=== PATIENT | female | born 1970 | race Caucasian/White ===

== ENCOUNTER 2019-07-30 10:11 | Emergency (ER) | payer OTHER, SELFPAY ==
[2019-07-30 10:26] VITALS: BP 121/87; PULSE 60; RESP 20; TEMP 36.6; O2SAT 98
--- NOTE | 2019-07-30 10:39 | ED.NAVMDI ---
HPI - Nausea/Vomiting/Diarrhea General Chief complaint: Nausea/Vomiting/Diarrhea Stated complaint: nausea and diarrhea Time Seen by Provider: 07/30/19 10:39 Source: patient and family Mode of arrival: ambulatory Limitations: no limitations History of Present Illness HPI Narrative: Brenda Macdonald is a 49 yo female with a PMH of depression, GERD, who comes to the doctor's office for complaints of nausea vomiting x2 days. She states she has had to call off for 2 days Related Data Home Medications Medication Instructions Recorded Confirmed bupropion HCl 300 mg PO QAM 04/04/19 07/30/19 citalopram 40 mg PO DAILY 04/04/19 07/30/19 ranitidine HCl [Acid Control 150 mg PO BID 04/04/19 07/30/19 (ranitidine)] Allergies Allergy/AdvReac Type Severity Reaction Status Date / Time No Known Allergies Allergy Verified 07/30/19 10:39 Review of Systems Review of Systems: Narrative: CONSTITUTIONAL: Denies fever, chills, sweats. EYES: Denies visual changes, redness, discharge. ENT: Denies rhinorrhea, congestion, sore throat, otalgia. CARDIOVASCULAR: Denies chest pain, palpitations, edema. RESPIRATORY: Denies dyspnea, wheezing, cough GASTROINTESTINAL: Denies abdominal pain, has nausea, vomiting, diarrhea. GENITOURINARY: Denies dysuria, hematuria, abnormal discharge SKIN: Denies rash or itching. NEUROLOGIC: Denies numbness, or focal weakness. PSYCHIATRIC: Denies anxiety or depression. PMFSH Past Medical History Medical History Anxiety and depression Carpal tunnel syndrome GERD (gastroesophageal reflux disease) Family History Family History Other Diabetes mellitus Social History Social History Smoking status: Never smoker Alcohol intake: never Comments At time of signature, I agree with nursing past medical, surgical, social and family history. There is no relevant family history pertinent to the presenting complaint. Exam Narrative: Exam Narrative: GENERAL: This is a well-nourished, well-developed patient, in mild distress. Patient is unkempt HEAD: normocephalic, atraumatic. EYES: PERRL. Sclera clear/white. Vision is grossly intact. EARS: External ears normal, auditory canals clear and without drainage, TMs normal without perforation. Hearing grossly intact. NOSE: External nose normal with no obvious nasal discharge, nares without redness, no rhinorrhea. THROAT: Mucous membranes moist, posterior pharynx clear. NECK: Neck supple, non-tender . CARDIOVASCULAR: Regular rate and rhythm without murmurs, gallops, or rubs. RESPIRATORY: Clear to auscultation. Breath sounds equal bilaterally. No wheezes, rales, or rhonchi. GASTROINTESTINAL: Abdomen soft, non-tender, nondistended. SKIN: warm, intact with no suspicious lesions or rash, good texture and turgor. NEURO: awake, alert, and oriented to person, place and time. There were no obvious focal neurologic abnormalities. Steady gait EXTREMITIES: Normal range of motion. No edema. BACK: Nontender without deformity or crepitance. Course Course Emergency Course: Patient started on Zofran and Imodium, instructions on brat diet Work excuse given Vital Signs Vital signs: Vital Signs Temperature 97.9 F 07/30/19 10:26 Pulse Rate 60 07/30/19 10:26 Respiratory Rate 20 07/30/19 10:26 Blood Pressure 121/87 07/30/19 10:26 Pulse Oximetry 98 07/30/19 10:26 Temperature 97.9 F 07/30/19 10:26 Pulse Rate 60 07/30/19 10:26 Respiratory Rate 20 07/30/19 10:26 Blood Pressure 121/87 07/30/19 10:26 Pulse Oximetry 98 07/30/19 10:26 MDM - Nausea/Vomiting/Diarrhea Differential Diagnosis Differential diagnosis: Likely traveler's diarrhea, gastroenteritis, dehydration and other Discharge Plan Discharge Clinical Impression: Dehydration, Gastroenteritis Patient Dispositio
== END 2019-07-30 10:55 | disposition home or self-care (01) ==
PROVIDERS: Emergency Provider Nurse Practitioner
DX: K52.9 Noninfective gastroenteritis and colitis, unspecified (principal); E86.0 Dehydration; F41.9 Anxiety disorder, unspecified; F32.9 Major depressive disorder, single episode, unspecified; K21.9 Gastro-esophageal reflux disease without esophagitis
CPT/HCPCS: 99213; G0463

== ENCOUNTER 2023-09-08 14:26 | Emergency (ER) | payer BC, SELFPAY ==
[2023-09-08 14:34] VITALS: BP 131/95; PULSE 109; RESP 20; TEMP 36.8; O2SAT 95
[2023-09-08 14:44] VITALS: BP 131/95; PULSE 109; RESP 20; TEMP 36.8; O2SAT 95
--- NOTE | 2023-09-08 14:52 | ED.URI ---
HPI - URI/Sore Throat General Chief Complaint: Unspecified Stated Complaint: dizzy/matting eyes/headache Time Seen by Provider: 09/08/23 14:44 Source: patient and RN notes reviewed Mode of arrival: ambulatory Limitations: no limitations History of Present Illness HPI Narrative: Patient presents today complaining of headache, dizziness, nasal congestion, rhinorrhea, postnasal drip, nausea vomiting, redness and clear drainage from the right eye. The nasal and eye symptoms started yesterday, with the remaining symptoms starting today. The dizziness worsens with [id number] head movements. The dizziness has also caused her to vomit twice today. She currently rates her headache 08/02 and has been taking Coricidin HBP and Excedrin with some mild relief. Denies fever, chest pain, shortness of breath, numbness or tingling in the extremities, weakness. Related Data Home Medications Medication Instructions Recorded Confirmed bupropion HCl 300 mg 24 hr tablet, 300 mg PO QAM 04/04/19 09/08/23 extended release albuterol sulfate 90 mcg/actuation inhalation 09/08/23 09/08/23 aerosol inhaler amlodipine 5 mg tablet 5 mg PO DAILY 09/08/23 09/08/23 hydroxyzine HCl 25 mg tablet See Rx Instructions .Route 09/08/23 09/08/23 .COMPLEX PRN Anxiety lamotrigine 25 mg tablet See Rx Instructions .Route .COMPLEX 09/08/23 09/08/23 omeprazole 20 mg capsule,delayed 20 mg PO BID 09/08/23 09/08/23 release sertraline 100 mg tablet 150 mg PO DAILY 09/08/23 09/08/23 Allergies Allergy/AdvReac Type Severity Reaction Status Date / Time No Known Allergies Allergy Verified 09/08/23 14:42 Review of Systems Review of Systems: CONSTITUTIONAL: Denies body aches, fever, chills, or sweats. EYES: + redness and clear drainage to the right eye. ENT: Denies sore throat, or otalgia.+ rhinorrhea, congestion, postnasal drip CARDIOVASCULAR: Denies chest pain, palpitations, or edema. RESPIRATORY: Denies cough or dyspnea. GASTROINTESTINAL: Denies abdominal pain, nausea, vomiting, or diarrhea. GENITOURINARY: Denies dysuria or hematuria. SKIN: Denies rash, itching, or wounds. MUSCULOSKELETAL: Denies back pain, joint pain, or myalgia. NEUROLOGIC: Denies numbness, tingling, or weakness.+ headache, dizziness PSYCH: Denies depression or anxiety. [facility] Past Medical History Medical History (Updated 09/08/23 @ 15:22 by Nani Hughes, [employer]GRAM [employer], ) Anxiety and depression Carpal tunnel syndrome GERD (gastroesophageal reflux disease) Surgical History Surgical History Hx of cholecystectomy Hx of tubal ligation Family History Family History Other Diabetes mellitus Social History Social History Smoking status: Never smoker Alcohol intake: never Comments At time of signature, I have reviewed and agree with nursing past medical, surgical, social and family history unless otherwise noted. Please see nursing chart for further information. There is no relevant family history pertinent to the presenting complaint Exam Narrative: GENERAL: Well-appearing, well-nourished, and in no acute distress. HEAD: Normocephalic, atraumatic. EYES: EOMI. PERRL. No nystagmus. No redness or drainage. Conjunctivae normal. ENT: Mucous membranes pink and moist. Nares clear. + rhinorrhea. TMs normal bilaterally with mild middle ear effusions. Throat normal. Uvula midline. NECK: Normal AROM. Supple. No lymphadenopathy. CHEST: No respiratory distress. Clear to auscultation. HEART: Regular rate and rhythm. No murmur appreciated. EXTREMITIES: Normal range of motion. No edema. SKIN: Warm, dry, no rash. Capillary refill normal. Normal skin turgor. NEURO: No focal deficits. Alert and oriented x3. Gait steady. PSYCH: Normal affect. No signs of depression or anxiety. Course Cours
[2023-09-08] MEDS: MECLIZINE HCL 25 MG TABLET 50 MG PO (14:56)
== END 2023-09-08 15:25 | disposition home or self-care (01) ==
PROVIDERS: Emergency Provider Nurse Practitioner; PCP Internal Medicine
DX: B34.9 Viral infection, unspecified (principal); K21.9 Gastro-esophageal reflux disease without esophagitis; F41.9 Anxiety disorder, unspecified; F32.A Depression, unspecified
CPT/HCPCS: 99213; A9270; G0463

== ENCOUNTER 2024-04-19 19:26 | Emergency (ER) | payer BC, SELFPAY ==
[2024-04-19 19:30] VITALS: BP 122/80; PULSE 102; RESP 20; TEMP 37; O2SAT 96
--- NOTE | 2024-04-19 19:30 | ED.URI ---
HPI - URI/Sore Throat General Chief Complaint: Upper Respiratory Infection Stated Complaint: Cough/Shortness of Breath/Congestion Time Seen by Provider: 04/19/24 19:38 Source: patient and RN notes reviewed Mode of arrival: ambulatory Limitations: no limitations History of Present Illness HPI Narrative: 53-year-old female presents with concern of for cough, shortness of breath, chest congestion. She denies fever. Reports body aches. Reports runny nose and stuffy nose. 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 MD elicited complaint: cough Related Data Home Medications Medication Instructions Recorded Confirmed albuterol sulfate 90 mcg/actuation 2 puff inhalation Q4-6H PRN 09/08/23 04/19/24 aerosol inhaler Shortness Of Breath Or Wheezing amlodipine 5 mg tablet 5 mg PO DAILY 09/08/23 04/19/24 hydroxyzine HCl 25 mg tablet 25 mg PO DAILY PRN Anxiety 09/08/23 04/19/24 lamotrigine 25 mg tablet 50 mg PO QHS 09/08/23 04/19/24 omeprazole 20 mg capsule,delayed 20 mg PO BID 09/08/23 04/19/24 release metformin 500 mg tablet 500 mg PO BID 03/31/24 04/19/24 naltrexone 50 mg tablet 50 mg PO DAILY 03/31/24 04/19/24 bupropion HCl 200 mg tablet,12 hr 200 mg PO BID 04/19/24 04/19/24 sustained-release escitalopram oxalate 10 mg tablet 10 mg PO DAILY 04/19/24 04/19/24 Allergies Allergy/AdvReac Type Severity Reaction Status Date / Time No Known Allergies Allergy Verified 04/19/24 19:36 Review of Systems Review of Systems: CONSTITUTIONAL: Denies malaise, chills, sweats, or fever. EYES: Denies visual changes, redness, or discharge. ENT: Reports rhinorrhea, congestion. Denies sinus pain, otalgia and sore throat. CARDIOVASCULAR: Denies chest pain, palpitations, or edema. RESPIRATORY: Reports cough and chest congestion. Denies dyspnea. GASTROINTESTINAL: Denies abdominal pain, nausea, vomiting, diarrhea SKIN: Denies rash or itching. MUSCULOSKELETAL: Reports myalgia. NEUROLOGIC: Denies headache. All systems reviewed & are unremarkable except as noted in HPI and below PMFSH Past Medical History Medical History (Updated 04/19/24 @ 19:58 by Kirti Jose NP) Anxiety and depression Carpal tunnel syndrome GERD (gastroesophageal reflux disease) Surgical History Surgical History Hx of cholecystectomy Hx of tubal ligation Family History Family History Other Diabetes mellitus Social History Social History Smoking status: Never smoker Alcohol intake: never Comments At time of signature, agree with nursing past medical, surgical, social and family history. There is no relevant family history pertinent to the presenting complaint Exam Narrative: GENERAL: Well-appearing, well-nourished, and in no acute distress. HEAD: Normocephalic EYES: PERRLA, conjunctivae clear ENT: Nares clear, turbinates edematous and erythematous, clear discharge. Mucous membranes moist. TM pearly nelson with dull light reflex bilaterally; no tragal tenderness. Oropharynx not erythematous without lesions. Tonsils not enlarged and without exudate, no drooling, no hoarseness, no trismus, uvula midline. NECK: Supple. No lymphadenopathy CHEST: Clear to auscultation, breath sounds equal. No wheezing, rhonchi, rales, or stridor. No respiratory distress, speaks in full sentences. HEART: Regular rate and rhythm. No murmur heard. SKIN: Warm, dry, no rash. NEURO: Alert and oriented x3. PSYCH: Normal mood and affect Course Course Emergency Course: Patient is aware of diagnosis, understands and agrees to treatment plan. Anticipatory guidance given. Patient agrees to follow-up as directed and is aware of reasons to seek care at the emergency department. Portions of this record may have been created with voice recognition software Level of Care: Express Care Visit Vital Signs Vital signs: Reviewed. MDM - URI/Sore Throat MDM Narrative Medical decision making narrative: Differential diagnosis considered: Duran virus, strep pharyngitis, allergic rhinitis, upper respiratory tract infection, sinusitis, rhinosinusitis, nasopharyngitis. viral pharyngitis, otitis media, otitis externa, pneumonia, bronchitis, viral cough syndrome, viral syndrome, and influenza. Exam findings show no acute concerns or changes; patient is non-toxic appearing and is in no distress. Patient is appropriate for outpatient treatment and follow-up. Lab Data Attestation: I reviewed the patient's lab results. Critical Care Time Critical Care Time Critical Care Time: No Discharge Plan Discharge Clinical Impression: Upper respiratory infection Patient Disposition: Home, Self-Care Condition: Stable Instructions: Upper Respiratory Infection (ED) Additional Instructions: Your flu and COVID tests are negative Viral illness may last between 7-21 days; antibiotics do not cure viral illness and are NOT recommended at this time. Recommend antihistamine such as Benadryl at night time and Zyrtec or Mariam during the day Use inhaler as needed for cough, wheezing, shortness of breath or chest tightness. Also, recommend symptomatic treatment includes: rest, fluids, and increase humidity of the air at home. Recommend Acetaminophen as directed on the bottle to reduce fever, pain, headache. Avoid smoking/second-hand smoke. Please schedule a follow-up visit with your personal physician for further evaluation and treatment within 3-5days. Including recheck and discussion of your blood pressure. If your symptoms persist, change or worsen significantly before you can contact your personal physician then please, without delay, go to the emergency department for further evaluation. Prescriptions: New prednisone 20 mg tablet 40 mg PO DAILY 5 Days Qty: 10 0RF albuterol sulfate 90 mcg/actuation HFA aerosol inhaler 2 puff INHALATION QID PRN (Reason: shortness of breath or wheezing) Qty: 8.5 0RF No Action metformin 500 mg tablet 500 mg PO BID naltrexone 50 mg tablet 50 mg PO DAILY escitalopram oxalate 10 mg tablet 10 mg PO DAILY bupropion HCl 200 mg tablet sustained-release 12 hr 200 mg PO BID lamotrigine 25 mg tablet 50 mg PO QHS omeprazole 20 mg capsule,delayed release(DR/EC) 20 mg PO BID hydroxyzine HCl 25 mg tablet 25 mg PO DAILY PRN (Reason: Anxiety) amlodipine 5 mg tablet 5 mg PO DAILY albuterol sulfate 90 mcg/actuation HFA aerosol inhaler 2 puff INHALATION Q4-6H PRN (Reason: Shortness Of Breath Or Wheezing) Follow-up/Referrals: Mar Ptael MD [Primary Care Provider] - Stand Alone Forms: Work/School Release IP Time of Disposition: 19:57
[2024-04-19 19:47] VITALS: BP 122/80; PULSE 102; RESP 20; TEMP 37; O2SAT 96
[2024-04-19 20:11] LABS: EDCOVIDSCREEN Negative (Negative); EDINFLUASCREEN Negative (Negative); EDINFLUBSCREEN Negative (Negative)
== END 2024-04-19 20:05 | disposition home or self-care (01) ==
PROVIDERS: Emergency Provider Nurse Practitioner; PCP Internal Medicine
DX: J06.9 Acute upper respiratory infection, unspecified (principal); Z20.822 Contact with and (suspected) exposure to COVID-19; K21.9 Gastro-esophageal reflux disease without esophagitis; F41.9 Anxiety disorder, unspecified; F32.A Depression, unspecified
CPT/HCPCS: 87426; 87804; 99213; G0463

== ENCOUNTER 2024-08-06 09:12 | Emergency (ER) | payer BC, SELFPAY ==
--- NOTE | 2024-08-06 09:14 | ED_ITS ---
HPI - URI/Sore Throat General Chief Complaint: Upper Respiratory Infection Stated Complaint: nausea/throat Time Seen by Provider: 08/06/24 09:33 Source: patient and RN notes reviewed Mode of arrival: ambulatory Limitations: no limitations History of Present Illness HPI Narrative: 54-year-old female presents concern for cough, sore throat for 8 days. Reports yesterday she had several episodes of vomiting. She denies abdominal pain. Denies taking [id number] medications for her symptoms. She denies fever, body aches, chills, sweats MD elicited complaint: cough and sore throat Related Data Home Medications ?Medication ?Instructions ?Recorded ?Confirmed ?Last Taken ?Type amlodipine 5 mg tablet 5 mg PO DAILY 09/08/23 04/19/24 Unknown History hydroxyzine HCl 25 mg tablet 25 mg PO DAILY PRN Anxiety 09/08/23 04/19/24 Unknown History lamotrigine 25 mg tablet 50 mg PO QHS 09/08/23 04/19/24 Unknown History omeprazole 20 mg capsule,delayed 20 mg PO BID 09/08/23 04/19/24 Unknown History release metformin 500 mg tablet 500 mg PO BID 03/31/24 04/19/24 Unknown History naltrexone 50 mg tablet 50 mg PO DAILY 03/31/24 04/19/24 Unknown History bupropion HCl 200 mg tablet,12 hr 200 mg PO BID 04/19/24 04/19/24 Unknown History sustained-release escitalopram oxalate 10 mg tablet 10 mg PO DAILY 04/19/24 04/19/24 Unknown History Allergies Allergy/AdvReac Type Severity Reaction Status Date / Time No Known Allergies Allergy Verified 08/06/24 09:36 Review of Systems Review of Systems: CONSTITUTIONAL: Reports malaise. Denies chills, sweats, or fever. EYES: Denies visual changes, redness, or discharge. ENT: Reports rhinorrhea, congestion, and sore throat. CARDIOVASCULAR: Denies chest pain, palpitations, or edema. RESPIRATORY: Reports cough. Denies dyspnea. GASTROINTESTINAL: Denies abdominal pain, diarrhea. Reports nausea with vomiting yesterday. SKIN: Denies rash or itching. MUSCULOSKELETAL: Denies myalgia. NEUROLOGIC: Denies headache. All systems reviewed & are unremarkable except as noted in HPI and below PMFSH Past Medical History Medical History (Updated 08/06/24 @ 09:41 by Kirti Jose NP) Carpal tunnel syndrome GERD (gastroesophageal reflux disease) Anxiety and depression Surgical History Surgical History Hx of tubal ligation Hx of cholecystectomy Family History Family History Other Diabetes mellitus Social History Social History Smoking status: Never smoker Alcohol intake: never Comments At time of signature, agree with nursing past medical, surgical, social and family history. There is no relevant family history pertinent to the presenting complaint Exam Narrative: GENERAL: Nontoxic-appearing, well-nourished, and in no acute distress. HEAD: Normocephalic EYES: PERRLA, conjunctivae clear ENT: Nares clear. Mucous membranes moist. TM pearly nelson with dull light reflex bilaterally; no tragal tenderness. Oropharynx not erythematous without lesions. Tonsils not enlarged and without exudate, no drooling, no hoarseness, no trismus, uvula midline. NECK: Supple. No lymphadenopathy CHEST: Clear to auscultation, breath sounds equal. No wheezing, rhonchi, rales, or stridor. No respiratory distress, speaks in full sentences. Cough noted HEART: Regular rate and rhythm. No murmur heard. SKIN: Warm, dry, no rash. NEURO: Alert and oriented x3. PSYCH: Normal mood and affect Course Course Emergency Course: Patient is aware of diagnosis, understands and agrees to treatment plan. Anticipatory guidance given. Patient agrees to follow-up as directed and is aware of reasons to seek care at the emergency department. Portions of this record may have been created with voice recognition software Level of Care: Express Care Visit Vital Signs Vital signs: Reviewed. MDM - URI/Sore Throat MDM Narrative Medical decision making narrative: Differential diagnosis considered: Duran virus, strep pharyngitis, allergic rhinitis, upper respiratory tract infection, sinusitis, rhinosinusitis, nasopharyngitis. viral pharyngitis, otitis media, otitis externa, pneumonia, bronchitis, viral cough syndrome, viral syndrome, and influenza. Exam findings show no acute concerns or changes; patient is non-toxic appearing and is in no distress. Patient is appropriate for outpatient treatment and follow-up. Lab Data Attestation: I reviewed the patient's lab results. Critical Care Time Critical Care Time Critical Care Time: No Discharge Plan Discharge Clinical Impression: Upper respiratory infection with cough and congestion Patient Disposition: Home, Self-Care Condition: Stable Instructions: Antibiotic Form, Acute Cough (ED) Additional Instructions: 1) Please follow-up with your primary care doctor in the next 1-2 days. 2) If you have any worsening of symptoms or any other urgent concerns please go to the ER. 3) Please take medications as prescribed and continue taking your home medications as usual. 4) Please read and follow information included in discharge instructions. Patient Language: Greenlandic Prescriptions: New dextromethorphan-guaifenesin [Mucinex DM] 60-1,200 mg tablet extended release 12 hr 1 tablet PO Q12H Qty: 12 0RF penicillin V potassium 500 mg tablet 500 mg PO Q12H 10 Days Qty: 20 0RF methylprednisolone [Medrol (Fady)] 4 mg tablets,dose pack See Rx Instructions .ROUTE .COMPLEX Qty: 21 0RF Rx Instructions: orally per package directions No Action metformin 500 mg tablet 500 mg PO BID naltrexone 50 mg tablet 50 mg PO DAILY escitalopram oxalate 10 mg tablet 10 mg PO DAILY bupropion HCl 200 mg tablet sustained-release 12 hr 200 mg PO BID lamotrigine 25 mg tablet 50 mg PO QHS omeprazole 20 mg capsule,delayed release(DR/EC) 20 mg PO BID hydroxyzine HCl 25 mg tablet 25 mg PO DAILY PRN (Reason: Anxiety) amlodipine 5 mg tablet 5 mg PO DAILY Follow-up/Referrals: UNKNOWN,DOCTOR [Non-Staff] - Stand Alone Forms: Work/School Release IP Time of Disposition: 09:43
[2024-08-06 09:16] VITALS: BP 107/78; PULSE 98; RESP 16; TEMP 36.6; O2SAT 97
--- OUTSIDE RECORDS SUMMARY | 2024-08-06 09:39 | XMS_ITS | Referral Summary ---
Author Organization [facility] Address [address] [place] [address] Care Team Providers Care Glove Parts Inspector Name Role Phone Quoc Hendrix PT Unavailable Unavailable Bailey Piedra CHRISTMAS BELL RINGER Unavailable Unavailab Gilbert Duarte MD Primary Care Provi adriana Encounters Date Type Department Care Team Description 08/04/2024 Results Follow-Up [facility] Primary Care at [address] [phone] Gilbert Chilel MD 08/03/2024 9:45 AM CDT Office Visit [facility] Primary Care at [address] [phone] Gilbert Chilel MD Type 2 diabetes mellitus without complication, without long-term current use of insulin (HCC) (Primary Dx); Essential hypertension; Class 2 severe obesity with serious comorbidity and body mass index (BMI) of 36.0 to 36.9 in adult, unspecified obesity type (HCC) 08/02/2024 Results Follow-Up [facility] Primary Care at [address] [phone] Gilbert Chilel MD 08/02/2024 9:21 AM CDT - 08/02/2024 11:59 PM CDT Hospital Encounter [address] [address] Hyperglycemia Discharge Disposition: Discharge to home or self care 08/02/2024 9:30 AM CDT Lab [facility] at [address] [phone] Blood glucose elevated (Primary Dx) 07/29/2024 10:45 AM LABOR SPECIALIST Office Visit [facility] Primary Care at [address] [phone] Gilbert Chilel MD Acute gastroenteritis (Primary Dx); Nausea and vomiting, unspecified vomiting type 07/21/2024 Telephone [facility] Primary Care at [address] [phone] Gilbert Chilel MD Medical Question/Miscellaneous 07/01/2024 3:00 PM LABOR SPECIALIST Office Visit [facility] Primary Care at [address] [phone] Gilbert Chilel MD Acute gastroenteritis (Primary Dx); Mild dehydration; Vomiting, unspecified vomiting type, unspecified whether nausea present 06/22/2024 11:30 AM LABOR SPECIALIST Office Visit [facility] Primary Care at [address] [phone] Gilbert Chilel MD Acute intractable headache, unspecified headache type (Primary Dx); Encounter for screening mammogram for malignant neoplasm of breast 05/31/2024 9:52 AM LABOR SPECIALIST - 05/31/2024 11:59 PM LABOR SPECIALIST Hospital Encounter [facility] Nutrition and Diabetic Education 1 [facility] Room [address] [place], [place] [id number] Hernandez, Kay Flores RD Type 2 diabetes mellitus with hyperglycemia, unspecified whether terminal press operator insulin use (HCC); Obesity; Pure hypercholesterolemia Discharge Disposition: Discharge to home or self care from Last 3 Months Allergies No known active allergies Medications omeprazole (PriLOSEC) 20 mg capsule Take 1 capsule (20 mg total) by mouth daily 08/23/19 18 Active cyclobenzaprine (FLEXERIL) 5 mg tablet TK 1 T PO TID PRN 0 04/28/20 18 Active Contour Next Test Strips strip daily 03/05/20 24 Active escitalopram (LEXAPRO) 10 mg tablet TAKE 1 TABLET BY MOUTH EVERY DAY IN THE EVENING FOR DEPRESSION OR ANXIETY 04/07/20 24 Active hydrOXYzine (ATARAX) 25 mg tablet Take 1 tablet (25 mg total) by mouth 4 (four) times a day as needed Active ibuprofen (ADVIL,MOTRIN) 600 mg tablet Take 1 tablet (600 mg total) by mouth every 8 (eight) hours as needed for pain 12/06/19 22 Active lamoTRIgine (LaMICtal) 25 mg tablet TAKE 2 TABLETS BY MOUTH EVERY DAY IN THE EVENING FOR MOOD SYMPTOMS 04/07/20 24 Active metFORMIN (GLUCOPHAGE) 500 mg tablet Take 1 tablet (500 mg total) by mouth daily with breakfast 04/09/20 24 Active naltrexone (DEPADE) 50 mg tablet Take 1 tablet (50 mg total) by mouth daily 02/23/20 24 Active buPROPion SR (WELLBUTRIN SR) 200 mg 12 hr tablet TAKE 1 TABLET BY MOUTH TWICE DAILY. START THIS WITH NALTREXONE 50 MG DAILY 04/12/20 24 Active Microlet Lancet misc daily 05/25/20 24 Active multivit with min-folic acid 0.4 mg tablet Take 1 tablet by mouth daily Active aspirin 81 mg enteric coated tablet Take 1 tablet (81 mg total) by mouth daily Active vilazodone (VIIBRYD) 20 mg tablet 07/28/19 25 Active ondansetron ODT (ZOFRAN-ODT) 4 mg disintegrating tabletIndications:N ausea and vomiting, unspecified vomiting type Take 1 tablet (4 mg total) by mouth every 8 (eight) hours as needed for nausea or vomiting for up to 10 days 30 tablet 07/30/19 25 025 Active losartan (COZAAR) 25 mg tabletIndications:E ssential hypertension Take 1 tablet (25 mg total) by mouth daily 90 tablet 1 08/04/19 25 025 Active amLODIPine (NORVASC) 5 mg tablet Take 1 tablet (5 mg total) by mouth daily 04/23/20 24 025 Discontinu ed(Alterna te therapy) ondansetron ODT (ZOFRAN-ODT) 4 mg disintegrating tabletIndications:A cute gastroenteritis Take 1 tablet (4 mg total) by mouth every 6 (six) hours as needed for nausea or vomiting for up to 10 days 30 tablet 1 07/01/19 25 025 Active Problems Problem Noted Date Diagnosed Date Type 2 diabetes mellitus wit hout complication, without long-term current use of insulin 08/03/2024 Class 2 severe obesity with serious comorbidity and body mass index (BMI) of 36.0 to 36.9 in adult 08/03/2024 Nausea and vomiting 07/29/2024 Acute gastroenteritis 07/01/2024 Mild dehydration 07/01/2024 Hyperglycemia 04/29/2024 Essential hypertension 04/29/2024 Personal history of colonic polyps 02/05/2024 Encounter for screening colonoscopy 03/27/2020 Overview (03/27/2020): Added automatically from request for surgery [id number] Arthritis of right acromioclavicular joint 12/10 Overview (12/10/2017): Added automatically from request for surgery [id number] Bicipital tendinitis of right shoulder 8 Overview (12/10/2017): Added automatically from request for surgery [id number] Impingement syndrome of right shoulder 8 Overview (12/10/2017): Added automatically from request for surgery [id number] Asthma 10/09/2013 Overview (08/28/2016): Asthma Depression 10/09/2013 Overview (08/29/2016): Depression Bipolar affective disorder 10/09/2013 Overview (08/29/2016): Bipolar disorder Resolved Problems Problem Noted Date Diagnosed Date Resolved Date Acute intractable headache 06/22/2024 0 07/29/2024 Class 2 obesity without seri ous comorbidity with body mass index (BMI) of 37.0 to 37.9 in adult 04/29/2024 08/03/2024 Immunizations Immunization Administration Dates Next Due Influenza, Quadrivalent, Spl it, Intramuscular 02/18/2018,04/04/2017,04/17/2016,03/15 Influenza, Trivalent, High D ose, Split, Preservative Free, Intramuscular 03/18/2013 Influenza, Unspecified 03/10/2024,2022(Deferred: Patient Refused),03/04/2023(Deferred: Patient Refused) Pfizer SARS-CoV-2 Monovalent Vaccination (12+ Yrs) PURPLE 05/23/2021,05/22/2021,08/25/2020,08/24,08/06/2020,07/23/2020 Tdap 01/19/2016,01/18/2016 Social History Tobacco Use Types Packs/Day Years Used Date Smoking Tobacco: Never Smokeless Tobacco: Never Tobacco Cessation:Counseling Given: Not Answered Alcohol Use Standard Drinks/Week Comments No 0 (1 standard drink = 0.6 oz pur e alcohol) AUDIT-C Answer Date Recorded Q1: How often do you have a drink containing alc ohol? Never 02/28/2021 Average Number of Drinks Not on file 021 Frequency of Binge Drinking Not on file 10/2020 PHQ-2 Answer Date Recorded PHQ-2 Total Score (If total score is 3 or more points, staff should administer the PHQ-9) 2 04/29/2024 Comments No Sex and Gender Information Value Date Recorded Sex Assigned at Not on file Legal Sex Female 12:49 AM LABOR SPECIALIST Gender Identity Not on file Sexual Orientation Not on file Last Filed Vital Signs Vital Sign Reading Time Taken Comments Blood Pressure 106/70 08/03/2024 9:23 AM CDT Pulse 70 08/03/2024 9:23 AM CDT Temperature 36.3 C (97.3 F) 08/03/2024 9:23 AM CDT Respiratory Rate 22 02/28/2021 12:5 9 PM CDT Oxygen Saturation 96% 08/03/2024 9:23 AM CDT Inhaled Oxygen Concentration - - Weight 92.4 kg (203 lb 12.8 oz) 08/03/2024 9:23 AM CDT Height 160 cm (5' 2.99 ) 08/03/2024 9:23 AM CDT Body Mass Index 36.11 08/03/2024 9:23 AM CDT Plan of Treatment Upcoming Encounters Date Type Department Care Team (Late st Contact Info) Description 03/14/2025 10:00 AM CDT Hospital Encounter [facility] [address] [place] [address] Enid Toribio MD [address] [facility] [address] [place] [address] 03/14/2025 10:00 AM CDT - 03/14/2025 10:30 AM CDT Surgery [facility] [address] [place] [address] Enid Toribio MD [address] [facility] [address] [place] [address] COLONOSCOPY Scheduled Procedures Name Priority Associated Diagnoses Date/Ti me COLONOSCOPY Personal history of colonic polyps Encounter for screening colonoscopy 03/14/2025 10:00 AM CDT Procedures Procedure Name Priority Date/Time Associated Diagnosis Comments RETINAVUE SCANNER - OU - BOTH EYES Routine 08/03/2024 9:30 AM CDT Type 2 diabetes mellitus without complication, without long-term current use of insulin (HCC) HEMOGLOBIN A1C Routine 08/02/2024 9:21 AM CDT Hyperglycemia POC INFLUENZA A/B, COVID-19 ANTIGEN Routine 07/01/2024 2:45 PM LABOR SPECIALIST Vomiting, unspecified vomiting type, unspecified whether nausea present EGFR Routine 05/03/2024 10:30 AM LABOR SPECIALIST Essential hypertension LIPID PANEL Routine 05/03/2024 10:30 AM LABOR SPECIALIST Essential hypertension ALBUMIN CREATININE RATIO, URINE Routine 05/03/2024 10:30 AM LABOR SPECIALIST Hyperglycemia COLONOSCOPY 02/28/2021 10:35 AM CDT SCREENING MAMMOGRAM BILATERAL [facility] Schedule Routine, Read Routine (OP Routine) 08/28/2020 3:24 PM CDT Encounter for screening mammogram for malignant neoplasm of breast from Last 3 Months or Most Recently Relevant to Health Maintenance Results * RetinaVue Scanner - OU - Both Eyes (08/03/2024 9:30 AM CDT) Anatomical Region Laterality Modality Head Fundus Photograp hy Retina 08/03/2024 9:30 AM CDT Gilbert Chilel MD OPHTH PHOTOGRAPHY F inal Result * (ABNORMAL) Hemoglobin A1c (08/02/2024 9:21 AM CDT) Hgb A1C 6.3(H) 4.0 - 5.6 % Estimated Average Glucose 134 mg/dL [facility] Comment: The ADA recommends reporting an estimated Average Glucose (eAG) with all Hemoglobin A1c results using the equation derived from a study of 507 normal and diabetic adults. Minority populations were underrepresented and children were not included. (Diabetes Care 31:7815-5292, 2008). The eAG is not equivalent to a fasting glucose. Blood 08/02/2024 9:21 AM CDT 08/02/2024 2:38 PM CDT Gilbert Chilel MD LAB BLOOD ORDERABLE S Final Result Performing Organization Address City/State/ZIP Co pa Phone Number CRISTIAN [phone] Department [place] [address] * POC Influenza A/B, COVID-19 antigen (07/01/2024 2:45 PM LABOR SPECIALIST) Influenza A Ag, POC Negative Negative PCP [facility] Influenza B Ag, POC Negative Negative PCP [facility] COVID-19 Ag POC Presumptive Negative Presumptive Negative, Invalid PCP [facility] Nasal 07/01/2024 2:45 PM LABOR SPECIALIST Gilbert Chilel MD POINT OF CARE TEST ORDERABLES Final Result [facility] [address] [place] [phone], [facility] * eGFR (05/03/2024 10:30 AM LABOR SPECIALIST) eGFR 75 >=60 mL/min/1. 73 m2 Comment: Interpretive Data Reference Interval Normal >/= 90 mL/min/1.73m2 Mildly decreased* 60 - 89 mL/min/1.73m2 Mildly to moderately decreased 45 - 59 mL/min/1.73m2 Moderately to severely decreased 30 - 44 mL/min/1.73m2 Severely decreased 15 - 29 mL/min/1.73m2 Kidney Failure < 15 mL/min/1.73m2 *Relative to young adult level Estimated glomerular filtration rate is determined by the 2020 CKD-EPI equation recommended by the National Kidney Foundation (A Unifying Approach to GFR Estimation: Recommendations of the NKF-ASK Task Force on Reassessing the Inclusion of Race in Diagnosing Kidney Disease, JASN 2020). The CKD-EPI equation should not be used for patients with unstable renal function and has not been validated in children and those over 70. Current interpretive data was last reviewed 2021. Blood 05/03/2024 10:3 0 AM LABOR SPECIALIST 05/03/2024 9:15 PM LABOR SPECIALIST us Gilbert Chilel MD LAB BLOOD ORDERABLE S Final Result Performing Organization Address City/[facility]/ZIP Co de Phone Number [facility] [phone] [address] Department [place] [address] * Albumin Creatinine Ratio, Urine (05/03/2024 10:30 AM LABOR SPECIALIST) Albumin Ur 27.2 mg/L Comment: Interpretive Data No reference range established. Current interpretive data was last revised 2018. Creatinine Ur 233.5 mg/dL [facility] Comment: Interpretive Data No reference range established. Current interpretive data was last revised 2018. Albumin Creatinine Ratio, Ur 12 1 - 29 mg/g [facility] Urine 05/03/2024 10:3 0 AM LABOR SPECIALIST 05/03/2024 9:13 PM LABOR SPECIALIST us Gilbert Chilel MD LAB URINE ORDERABLE S Final Result [facility] [address] Department [place] [address] * (ABNORMAL) Lipid panel (05/03/2024 10:30 AM LABOR SPECIALIST) Cholesterol 198 30 - 199 mg/dL Comment: Interpretive Data Ages < or = 19 years Acceptable: <170 mg/dL Borderline high: 170-199 mg/dL High: >or= 200 mg/dL Ages > or = 20 years Desirable: <200 mg/dL Borderline high: 200-239 mg/dL High: >or= 240 mg/dL Literature References: 1. Expert Panel on Integrated Guidelines for Cardiovascular Health and Risk Reduction in Children and Adolescents. Pediatrics 2011;128:S213 2. NCEP Expert Panel. Circulation 2004;110:227 Current Interpretive Data was last revised on 2018. Triglycerides 128 <=149 mg/dL [facility] Comment: Interpretive Data Ages < or = 9 years Acceptable: <75 mg/dL Borderline high: 75-99 mg/dL High: >or= 100 mg/dL Ages 10 to 20 years Acceptable: <90 mg/dL Borderline high: 90-129 mg/dL High: >or= 130 mg/dL Ages > or = 20 years Desirable: <150 mg/dL Borderline high: 150-199 mg/dL High: 200-499 mg/dL Very high: >or= 499 mg/dL Literature References: 1. Expert Panel on Integrated Guidelines for Cardiovascular Health and Risk Reduction in Children and Adolescents. Pediatrics 2011;128:S213 2. NCEP Expert Panel. Circulation 2004;110:227 Current Interpretive Data was last revised on 2018. HDL 39(L) >=40 mg/dL [facility] WORLEY Comment: Interpretive Data Ages < or = 19 years Acceptable: >45 mg/dL Borderline low: 40-45 mg/dL Low: <40 mg/dL Ages > or = 20 years Desirable: >or= 60 mg/dL Low: <40 mg/dL Literature References: 1. Expert Panel on Integrated Guidelines for Cardiovascular Health and Risk Reduction in Children and Adolescents. Pediatrics 2011;128:S213 2. NCEP Expert Panel. Circulation 2004;110:227 Current Interpretive Data was last revised on 2018. LDL, calculated 136(H) <=129 mg/dL C[facility]STIAN WORLEY Comment: Interpretive Data Ages < or = 19 years Acceptable: <110 mg/dL Borderline high: 110-129 mg/dL High: >or= 130 mg/dL Ages > or = 20 years Optimal: <100 mg/dL Near optimal: 100-129 mg/dL Borderline high: 130-159 mg/dL High: >160 mg/dL Calculated using the Timbo LDL-C estimating equation. This equation was implemented on 2024. Prior to this date LDL-C was estimated using the Friedewald equation. Literature References: 1. Expert Panel on Integrated Guidelines for Cardiovascular Health and Risk Reduction in Children and Adolescents. Pediatrics 2011;128:S213 2. NCEP Expert Panel. Circulation 2004;110:227 3. Timbo Corcoran et al. ARMANI Cardiol. 2019September 23;5(5):540-548. doi: 10.1001/jamacardio.2020.0013 Current Interpretive Data was last revised on 2024. Non-HDL Cholesterol 159 mg/dL [facility] WORLEY Comment: Interpretive Data Ages < or = 19 years Acceptable: <120 mg/dL Borderline high: 120-144 mg/dL High: >145 mg/dL Ages > or = 20 years When triglycerides are >200 mg/dL, Non-HDL cholesterol is a secondary target of therapy with treatment goals that are 30 mg/dL greater than the LDL cholesterol target. Literature References: 1. Expert Panel on Integrated Guidelines for Cardiovascular Health and Risk Reduction in Children and Adolescents. Pediatrics 2011;128:S213 2. NCEP Expert Panel. Circulation 2004;110:227 Current Interpretive Data was last revised on 2018. Chol/HDL ratio 5 [facility] WORLEY Blood 05/03/2024 10:3 0 AM LABOR SPECIALIST 05/03/2024 9:13 PM LABOR SPECIALIST us Gilbert Chilel MD LAB BLOOD ORDERABLE S Final Result [facility] [address] Department [place] [address] * COLONOSCOPY (02/28/2021 10:35 AM CDT) Anatomical Region Laterality Modality Other Narrative Procedure Note Enid Toribio MD - 02/28/2021 10:35 AM CDT [facility] Patient Name: Brenda Macdonald Procedure Date: 02/28/2021 10:35 AM Date of : 1970 Admit Type: Outpatient Age: 50 Gender: Female Attending MD: Enid Toribio M.D. Room: [facility] ENDOSCOPY ROOM 1 Note Status: Finalized Patient Profile: This is a 50 year old female. No family history of colon cancer. Screening. Procedure: Colonoscopy Indications: Screening for colorectal malignant neoplasm, Thisis the patient's first colonoscopy Referring MD: Mar Patel M.D. Providers: Enid Toribio M.D. Impression: - One 9 mm polyp in the descending colon, removedwith a cold snare. Resected and retrieved. - Diverticulosis in the sigmoid colon. - Large external hemorrhoids and small internal hemorrhoids Recommendation: - Await pathology results. - Repeat colonoscopy in 3 years for screeningpurposes. - Continue present medications. Medicines: Monitored Anesthesia Care Complications: No immediate complications. Estimated Blood Loss: Estimated blood loss: none. Procedure: Pre-Anesthesia Assessment: - Prior to the procedure, a History and Physicalwas performed, and patient medications and allergieswere reviewed. The patient's tolerance of previous anesthesia was also reviewed. The risks andbenefits of the procedure and the sedation options and risks were discussed with the patient. All questions were answered, and informed consent was obtained. Prior Anticoagulants: The patient has taken no previous anticoagulant or antiplatelet agents. ASA Grade Assessment: III - A patient with severe systemic disease. After reviewing the risks and benefits,the patient was deemed in satisfactory condition to undergo the procedure. The benefits, risks and alternatives of theprocedure and sedation were discussed and informed consentwas obtained. All questions were answered. Please referto the signed informed consent document in the medical record. The bowel preparation used was Miralax via split dose instruction. The bowel preparation usedwas bisacodyl tablets via split dose instruction. The scope was passed under direct vision. The Pediatric Colonoscope [id number] was introducedthrough the anus and advanced to the the cecum, identifiedby appendiceal orifice and ileocecal valve. Thequality of the bowel preparation was fair. Bowel prep was administered using a split dose. Findings: Large external hemorrhoids were found on perianal exam. The cecum appeared normal. The ascending colon appeared normal. The transverse colon appeared normal. Considering the quality of the colon preparation small polyps can easily be missed A 9 mm polyp was found in the descending colon. The polyp wassessile. The polyp was removed with a cold snare. Resection and retrieval were complete. Multiple small-mouthed diverticula were found in the sigmoid colon. Internal hemorrhoids were found during retroflexion. The hemorrhoids were small. Electronically signed by Enid Toribio M.D. Enid Toribio M.D. 02/28/2021 12:28:15 PM Number of Addenda: 0 Note Initiated On: 02/28/2021 10:35 AM Procedure Code(s): --- Professional --- 47860, Colonoscopy, flexible; with removal of tumor(s), polyp(s), or other lesion(s) by snare technique Diagnosis Code(s): --- Professional --- Z12.11, Encounter for screening for malignant neoplasm of colon K64.8, Other hemorrhoids K63.5, Polyp of colon K57.30, Diverticulosis of large intestine without perforation orabscess without bleeding CPT copyright 2019 [employer]. All rights reserved. The codes documented in this report are preliminary and upon medical record coder reviewmay be revised to meet current compliance requirements. Recognized by the [employer] for promoting quality in endoscopy us Enid Toribio MD ENDOSCOPY PROCEDURES Final Result * (ABNORMAL) Screening Mammogram Bilateral [facility] [place] (08/28/2020 3:24 PM CDT) Anatomical Region Laterality Modality Breast Bilateral Mammography 08/29/2020 9:15 AM CDT Impressions 08/29/2020 9:25 AM CDT 1. Indeterminate focal asymmetry in the lateral right breast, middle to posterior depth. Further evaluation with diagnostic right mammography and possible diagnostic right breast ultrasound is recommended. 2. No mammographic evidence of malignancy in the left breast. Routine screening mammography left breast is recommended in 1 year. BI-RADS: 0 - Additional imaging evaluation is necessary. Electronically signed by: Moi Franklin M.D. Narrative 08/29/2020 9:25 AM CDT EXAMINATION: SCREENING MAMMOGRAM BILATERAL [facility] [place] ORDERING HEALTHCARE PROVIDER: ELSA STEELE HISTORY: Routine screening mammography. COMPARISON: 07/10/2018, 06/12/2016, 03/13/2016, 10/27/2014. TECHNIQUE: CC and MLO views of the bilateral breasts were obtained with digital technique using breast tomosynthesis with C view. Computer aided detection was utilized. FINDINGS: DENSITY: The tissue of the bilateral breasts is heterogeneously dense, which may obscure small masses. BREASTS: There is a focal asymmetry in the lateral right breast at the approximate 8-9 o'clock position, middle to posterior depth. There are no other suspicious findings in either breast. Elsa Steele SOFTWARE DEVELOPMENT TEST ENGINEER IMG MAMMO PROCEDURES Final Re sult from Last 3 Months or Most Recently Relevant to Health Maintenance Insurance [facility] [place] For more information, please contact: [phone] * Full Code (Latest Code Status on File) Date Activated Date Inactivated Comments 02/28/2021 10:26 AM 02/28/2021 5:08 PM Care Teams Glove Parts Inspector Relationship Specialty Start Date End Date Gilbert Chilel MD [address] [address] PCP - General Family Practice 04/29/24 Quoc Hendrix, PT Physical Therapist Physical Therapy 10/08/17 Bailey Piedra, CHRISTMAS BELL RINGER Physical Therapist Physical Therapy 10/13/17
--- OUTSIDE RECORDS SUMMARY | 2024-08-06 09:39 | XMS_ITS | Encounter Summary ---
Author Organization [facility] Healthcare Address [address] [place] [address] Care Team Providers Care Design Technology Teacher Name Role Phone Quoc Hendrix PT Unavailable Unavailable Bailey Piedra HISTOLOGIC TECHNICIAN Unavailable Unavailab Gilbert Duarte MD Primary Care Provi adriana Reason for Visit * Reason Onset Date Comments Medical Question/Miscellaneous 07/21/2024 Encounter Details Date Type Department Care Team (Late st Contact Info) Description 07/21/2024 Telephone [facility] Primary Care at [address] [place] [phone] Gilbert Chilel MD [address] [place] [address] [address] [place] [address] Medical Question/Miscellaneou s Social History Tobacco Use Types Packs/Day Years Used Date Smoking Tobacco: Never Smokeless Tobacco: Never Alcohol Use Standard Drinks/Week Comments No 0 [...] on file Legal Sex Female 12:49 AM CONTROL AREA OPERATOR Gender Identity Not on file Sexual Orientation Not on file documented as of this encounter Miscellaneous Notes * Telephone Encounter - Josephine Quesada - 07/21/2024 3:29 PM CST Medical Question/Miscellaneous Caller???s Concern: Patient called to advise her lab order for hemoglobin A1c dated 05/10/24 is notdated to be drawn until 07/28/24 which is Friday, patient states she will get labs drawn first thing Friday morning prior to her 07/27/24 appointment. Does message need to be routed? Yes-FYI Only ROL AREA OPERATOR documented in this encounter Plan of Treatment Upcoming Encounters Date Type Department Care Team (Late st Contact Info) Description 03/14/2025 10:00 AM CDT Hospital Encounter [address] [address] Enid Toribio MD [address] [place] [address] DR TANG [address] [place] [address] 03/14/2025 10:00 AM CDT - 03/14/2025 10:30 AM CDT Surgery [address] [address] Enid Toribio MD [address] [place] [address] DR TANG [address] [place] [address] COLONOSCOPY Scheduled Procedures Name Priority Associated Diagnoses Date/Ti me COLONOSCOPY Personal history of colonic polyps Encounter for screening colonoscopy 03/14/2025 10:00 AM CDT documented as of this encounter Visit Diagnoses Not on filedocumented in this encounter Care Teams Design Technology Teacher Relationship Specialty Start Date End Date Gilbert Chilel MD [address] [facility] [address] [place] [address] PCP - General Family Practice 04/29/24 Quoc Hendrix, PT Physical Therapist Physical Therapy 10/08/17 Bailey Piedra HISTOLOGIC TECHNICIAN Physical Therapist Physical Therapy 10/13/17 documented as of this encounter
--- OUTSIDE RECORDS SUMMARY | 2024-08-06 09:39 | XMS_ITS | Encounter Summary ---
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 Gender Identity Not on file Sexual Orientation Not on file documented as of this encounter Miscellaneous Notes * Result Encounter Note - Stacy Rizvi MA - 08/04/2024 7:48 AM CDT Message sent to patient via datango over normal diabetic eye exam documented in this encounter Plan of Treatment Upcoming Encounters Date Type Department Care Team (Late st Contact Info) Description 03/14/2025 10:00 AM CDT Hospital Encounter [address] [address] Enid Toribio MD 4 [facility] [address] [place] [address] 03/14/2025 10:00 AM CDT - 03/14/2025 10:30 AM CDT Surgery [address] [address] Enid Toribio MD 4 [facility] [address] [place] [address] COLONOSCOPY Scheduled Procedures Name Priority Associated Diagnoses Date/Ti me COLONOSCOPY Personal history of colonic polyps Encounter for screening colonoscopy 03/14/2025 10:00 AM CDT documented as of this encounter Visit Diagnoses Not on filedocumented in this encounter Care Teams Service Crew Leader Relationship Specialty Start Date End Date Gilbert Chilel MD [address] [facility] [address] [place] [address] PCP - General Family Practice 04/29/24 Quoc Hendrix, PT Physical Therapist Physical Therapy 10/08/17 Bailey Piedra PTA Physical Therapist Physical Therapy 10/13/17 documented as of this encounter
--- OUTSIDE RECORDS SUMMARY | 2024-08-06 09:39 | XMS_ITS | Encounter Summary ---
Author Organization [facility] Healthcare Address [address] [place] [address] Care Team Providers Care Electronics Technician Apprentice Name Role Phone Quoc Hendrix PT Unavailable Unavailable Bailey Piedra DEPLOYMENT ENGINEER Unavailable Unavailab Gilbert Duarte MD Primary Care Provi adriana Encounter Details Date Type Department Care Team (Late st Contact Info) Description 08/02/2024 Results Follow-Up [facility] Medical [facility] Primary Care at [address] [phone] Gilbert Chilel MD [address] [place] [address] Social History Tobacco Use Types Packs/Day Years [...] on file 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 Gender Identity Not on file Sexual Orientation Not on file documented as of this encounter Plan of Treatment Upcoming Encounters Date Type Department Care Team (Late st Contact Info) Description 03/14/2025 10:00 AM CDT Hospital Encounter [facility] [address] [place] [address] Enid Toribio MD 4 [facility] [address] [place] [address] 03/14/2025 10:00 AM CDT - 03/14/2025 10:30 AM CDT Surgery [address] [address] Enid Toribio MD 4 [facility] [address] [place] [address] COLONOSCOPY Scheduled Procedures Name Priority Associated Diagnoses Date/Ti me COLONOSCOPY Personal history of colonic polyps Encounter for screening colonoscopy 03/14/2025 10:00 AM CDT documented as of this encounter Visit Diagnoses Not on filedocumented in this encounter Care Teams Electronics Technician Apprentice Relationship Specialty Start Date End Date Gilbert Chilel MD [address] [facility] [address] [place] [address] PCP - General Family Practice 04/29/24 Quoc Hendrix, PT Physical Therapist Physical Therapy 10/08/17 Bailey Piedra PTA Physical Therapist Physical Therapy 10/13/17 documented as of this encounter
--- OUTSIDE RECORDS SUMMARY | 2024-08-06 09:39 | XMS_ITS | Encounter Summary ---
Author Organization [facility] Healthcare Address [address] [place] [address] Care Team Providers Care Vice President Of Engineering Name Role Phone Simeon Quoc PT Unavailable Unavailable Bailey Piedra ECOMM[employer] PROJECT MANAGER Unavailable Unavailab Nicole Cornell MD Primary Care Provider [phone] Mar Patel MD Primary Care Provider +- [phone] Nicole [place] MD Primary Care Provider [phone] Mar Patel MD Primary Care Provider +- [phone] Gilbert Chilel MD Primary Care Provi adriana Reason for Visit * Reason Onset Date Comments Scheduling Appointments 10/19/2020 Confirmi ng mammogram appt Encounter Details Date Type Department Care Team (Late st Contact Info) Description 10/19/2020 Telephone [facility] [address] [place] [phone] [address] Scheduling Appointments (Confirming mammogram appt) Social History Tobacco Use Types Packs/Day Years Used Date Smoking Tobacco: Never Smokeless Tobacco: Never Alcohol Use Standard Drinks/Week Comments No 0 (1 standard drink = 0.6 oz pur e alcohol) Comments No Sex and Gender Information Value Date Recorded Sex Assigned at Not on file 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 Gender Identity Not on file Sexual Orientation Not on file documented as of this encounter Plan of Treatment Upcoming Encounters Date Type Department Care Team (Late st Contact Info) Description 03/14/2025 10:00 AM CDT Hospital Encounter [facility] [address] [place] [address] Enid Toribio MD 4 [facility] [address] [place] [address] 03/14/2025 10:00 AM CDT - 03/14/2025 10:30 AM CDT Surgery [facility] [address] [place] [address] Enid Toribio MD [address] [facility] [address] [place] [address] COLONOSCOPY Scheduled Procedures Name Priority Associated Diagnoses Date/Ti me COLONOSCOPY Personal history of colonic polyps Encounter for screening colonoscopy 03/14/2025 10:00 AM CDT documented as of this encounter Visit Diagnoses Not on filedocumented in this encounter Additional Health Concerns Infection Onset Date Last Indicated Resolved Time COVID: Suspected 07/01/2024 07/01/2024 07/02/2024 3:07 AM SUBSURFACE AUGMENTEE OPERATOR documented as of this encounter Care Teams Vice President Of Engineering Relationship Specialty Start Date End Date Nicole [place] MD [address] [place] [address] [address]ROY Gaitan [facility] [address] [place] [address] PCP - General 06/05/20 10/19/20 Mar Patel MD [address] [place] [address] [place] [address] PCP - General 10/20/20 02/27/21 Nicole [place] MD [address] [place] [address] [address] DELROY Gaitan [facility] [address] [place] [address] PCP - General 02/28/21 12/16/21 Mar Patel MD [address] [place] [address] PCP - General Internal Medicine 12/17/21 04/28/24 Gilbert Chilel MD [address] [facility] [address] [place] [address] PCP - General Family Practice 04/29/24 Quoc Hendrix, PT Physical Therapist Physical Therapy 10/08/17 Bailey Piedra, ECOMMERCE PROJECT MANAGER Physical Therapist Physical Therapy 10/13/17 documented as of this encounter
--- OUTSIDE RECORDS SUMMARY | 2024-08-06 09:39 | XMS_ITS | Clinical Summary ---
Author Organization [facility] Address [address] [place] [address] Care Team Providers Care Farmworker Cranberry Name Role Phone Quoc Hendrix PT Unavailable Unavailable Bailey Piedra ROUTE DELIVERER Unavailable Unavailab Gilbert Duarte MD Primary Care Provi adriana Allergies No known active allergies Medications omeprazole [...] (03/27/2020): Added automatically from request for surgery [id number] Arthritis of right acromioclavicular joint 12/10 Overview (12/10/2017): Added automatically from request for surgery [id number] Bicipital tendinitis of right shoulder 8 Overview (12/10/2017): Added automatically from request for surgery [id number] Impingement syndrome of right shoulder 8 Overview (12/10/2017): Added automatically from request for surgery [id number] Asthma 10/09/2013 Overview (08/28/2016): Asthma Depression 10/09/2013 Overview (08/29/2016): Depression Bipolar affective disorder 10/09/2013 Overview (08/29/2016): Bipolar disorder Resolved Problems Problem Noted Date Diagnosed Date Resolved Date Acute intractable headache 06/22/2024 0 07/29/2024 Class 2 obesity without seri ous comorbidity with body mass index (BMI) of 37.0 to 37.9 in adult 04/29/2024 08/03/2024 Encounters Date Type Department Care Team Description 08/04/2024 Results Follow-Up [facility] Primary Care at [address] [phone] Gilbert Chilel MD 08/03/2024 9:45 AM CDT Office Visit [facility] Primary Care at [address] [phone] Gilbert Chilel MD Type 2 diabetes mellitus without complication, without long-term current use of insulin (HCC) (Primary Dx); Essential hypertension; Class 2 severe obesity with serious comorbidity and body mass index (BMI) of 36.0 to 36.9 in adult, unspecified obesity type (HCC) 08/02/2024 9:30 AM CDT Lab [facility] Outpatient Lab at [address] [phone] Blood glucose elevated (Primary Dx) 08/02/2024 9:21 AM CDT - 08/02/2024 11:59 PM CD[place] [address] Hyperglycemia Discharge Disposition: Discharge to home or self care 08/02/2024 Results Follow-Up [facility] Primary Care at [address] [phone] Gilbert Chilel MD 07/29/2024 10:45 AM COPYMAN Office Visit [facility] Primary Care at [address] [phone] Gilbert Chilel MD Acute gastroenteritis (Primary Dx); Nausea and vomiting, unspecified vomiting type 07/21/2024 Telephone [facility] Primary Care at [address] [phone] Gilbert Chilel MD Medical Question/Miscellaneous 07/01/2024 3:00 PM COPYMAN Office Visit [facility] Primary Care at [address] [phone] Gilbert Chilel MD Acute gastroenteritis (Primary Dx); Mild dehydration; Vomiting, unspecified vomiting type, unspecified whether nausea present 06/22/2024 11:30 AM COPYMAN Office Visit [facility] Primary Care at [address] [phone] Gilbert Chilel MD Acute intractable headache, unspecified headache type (Primary Dx); Encounter for screening mammogram for malignant neoplasm of breast 05/31/2024 9:52 AM COPYMAN - 05/31/2024 11:59 PM COPYMAN Hospital Encounter [facility] [address] [place] [address] [address] [place] [phone] Hernandez, Kay Flores RD Type 2 diabetes mellitus with hyperglycemia, unspecified whether intermediate insulin use (HCC); Obesity; Pure hypercholesterolemia Discharge Disposition: Discharge to home or self care from Last 3 Months Immunizations Immunization Administration Dates Next Due Influenza, Quadrivalent, Spl it, Intramuscular 02/18/2018,04/04/2017,04/17/2016,03/15 Influenza, Trivalent, High D ose, Split, Preservative Free, Intramuscular 03/18/2013 Influenza, Unspecified 03/10/2024,2022(Deferred: Patient Refused),03/04/2023(Deferred: Patient Refused) Pfizer SARS-CoV-2 Monovalent Vaccination (12+ Yrs) PURPLE 05/23/2021,05/22/2021,08/25/2020,08/24,08/06/2020,07/23/2020 Tdap 01/19/2016,01/18/2016 Surgical History Surgery Date Site/Laterality Comments CARPAL TUNNEL RELEASE 05/26/2001 - 05/25/2002 Carpal tunnel release TUBAL LIGATION 05/26/2000 - 05/25/2001 Bilateral tubal ligation CHOLECYSTECTOMY 05/26/2003 - 05/25/2004 Cholecystectomy OTHER SURGICAL HISTORY stress: Rx. OTHER SURGICAL HISTORY low iron: Rx. OTHER SURGICAL HISTORY 05/26/2003 - 05/25/2004 Gal bladder removed OTHER SURGICAL HISTORY 05/26/2003 - 05/25/2004 galbladder removed TUBAL LIGATION 05/26/2000 - 05/25/2001 Tubal CARPAL TUNNEL RELEASE 05/26/2000 - 05/25/2001 Right Carpal tunnel release OTHER SURGICAL HISTORY 05/26/1999 - 05/25/2000 cholecystitis: chlecystectomy TUBAL LIGATION Bilateral tubal ligation OTHER SURGICAL HISTORY carpel tunnel: surgery SHOULDER ARTHROSCOPY Bilateral bone spurs removed on bilat shoulders COLONOSCOPY 02/28/2021 1st Medical History Medical History Date Comments Hx Other Medical 2008 stress Hx Other Medical 2008 low iron Hx Other Medical cholecystitis Hx Other Medical carpel tunnel Sciatica Gastric reflux Nausea and vomiting 07/29/2024 Family History Medical History Relation Name Comments No Known Problems Brother Breast cancer Cousin graham 3rd cousin No Known Problems Daughter No Known Problems Father No Known Problems Mother Colon cancer Other 1 Family history of Cancer, colon; Hypertension Other 2 Family history of Hypertension; Other Other 3 Family history of Cancer,Lung; Diabetes Other 4 Family history of Diabetes mellitus; Hyperlipidemia Other 5 Family histor y of Hyperlipidemia; No Known Problems Sister No Known Problems Son Relation Name Status Comments Brother Cousin graham 3rd cousin Alive Daughter Father Mother Other 1 Other 2 Other 3 Other 4 Other 5 Sister Son Social History Tobacco Use Types Packs/Day Years [...] on file 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 Sex Female 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 Gender Identity Not on file Sexual Orientation Not on file Obstetrics History Para Term AB IAB SAB Ectopic Multiple Livin g Live Births 2 2 2 Date Outcome GA Total Labor Labor/2nd/3rd Weight Sex Type Anes PTL Ruby A1 A5 Name Clin Term Term Last Filed Vital Signs Vital Sign Reading [...] Description 03/14/2025 10:00 AM CDT Hospital Encounter [facility] [address] [place] [address] Enid Toribio MD [address] [place] [address] [address] 03/14/2025 10:00 AM CDT - 03/14/2025 10:30 AM CDT Surgery [facility] [address] [place] [address] Enid Toribio MD [address] [place] [address] [place] [address] COLONOSCOPY Scheduled Procedures Name Priority Associated Diagnoses Date/Ti me COLONOSCOPY Personal history of colonic polyps Encounter for screening colonoscopy 03/14/2025 10:00 AM CDT Health Maintenance Due Date Last Done Comments Cervical Cancer Screening 1970 Hepatitis C Screening 1970 Foot Exam 1970 Hepatitis B Screening 1988 Regular Well Visit/Exam 18-64 1988 Pneumococcal vaccine <65 (1 of 2 - PCV) 1989 Zoster Vaccine (1 of 2) 2020 Breast Cancer Screening-Mammogram 08/28/2021 08/28/2020, 07/10/2018, 03/12/2017, Additional history exists Covid-19 Vaccine (2023-2 5 season) 2024 05/23/2021, 05/22/2021, 08/25/2020, Additional history exists Colon Cancer Screening-Colonoscopy 02/29/20242020 Hemoglobin A1C 02/02/2025 08/02/2024, 05/03/2024 Depression Screening 04/29/2025 04/29/2024 Albumin Creatinine Ratio, Urine 05/03/2025 Lipid Panel 05/03/2025 05/03/2024 eGFR 05/03/2025 05/03/2024 Dilated Eye Exam 08/03/2025 08/03/2024 DTaP/Tdap/Td Vaccine (3 - Td or Tdap) 01/18/2026 01/19/2016, 01/18/2016 Influenza Vaccine Completed 03/10/2024, , 04/04/2017, Additional history exists Procedures Procedure Name Priority Date/Time Associated Diagnosis Comments RETINAVUE SCANNER - OU - BOTH EYES Routine 08/03/2024 9:30 AM CDT Type 2 diabetes mellitus without complication, without long-term current use of insulin (HCC) HEMOGLOBIN A1C Routine 08/02/2024 9:21 AM CDT Hyperglycemia POC INFLUENZA A/B, COVID-19 ANTIGEN Routine 07/01/2024 2:45 PM COPYMAN Vomiting, unspecified vomiting type, unspecified whether nausea present EGFR Routine 05/03/2024 10:30 AM COPYMAN Essential hypertension LIPID PANEL Routine 05/03/2024 10:30 AM COPYMAN Essential hypertension ALBUMIN CREATININE RATIO, URINE Routine 05/03/2024 10:30 AM COPYMAN Hyperglycemia COLONOSCOPY 02/28/2021 10:35 AM CDT SCREENING [...] and children were not included. (Diabetes Care 31:5412-4594, 2008). The eAG is not equivalent to a fasting glucose. Blood 08/02/2024 9:21 AM CDT 08/02/2024 2:38 PM CDT Gilbert Chilel MD LAB BLOOD ORDERABLE S Final Result [facility] [address] Department [place] [address] * POC Influenza A/B, COVID-19 antigen (07/01/2024 2:45 PM COPYMAN) Influenza A Ag, POC Negative Negative PCP [facility] Influenza B Ag, POC Negative Negative PCP [facility] COVID-19 Ag POC Presumptive Negative Presumptive Negative, Invalid PCP [facility] Nasal 07/01/2024 2:45 PM COPYMAN Gilbert Chilel MD POINT OF CARE TEST ORDERABLES Final Result Performing Organization Address City/[facility]/ZIP Co de Phone Number P[facility] [address] [phone] * eGFR (05/03/2024 10:30 AM COPYMAN) eGFR 75 >=60 mL/min/1. 73 m2 Comment: [...] reviewed 2021. Blood 05/03/2024 10:3 0 AM COPYMAN 05/03/2024 9:15 PM COPYMAN Gilbert Chilel MD LAB BLOOD ORDERABLE S Final Result Performing Organization Address [facility] de Phone Number [facility] [address] [facility] [place] [address] * Albumin Creatinine Ratio, Urine (05/03/2024 10:30 AM COPYMAN) Albumin Ur 27.2 mg/L Comment: Interpretive Data No reference range established. Current interpretive data was last revised 2018. Creatinine Ur 233.5 mg/dL CRISTIAN Comment: Interpretive Data No reference range established. Current interpretive data was last revised 2018. Albumin Creatinine Ratio, Ur 12 1 - 29 mg/g C[facility]STIAN Urine 05/03/2024 10:3 0 AM COPYMAN 05/03/2024 9:13 PM COPYMAN Gilbert Chilel MD LAB URINE ORDERABLE S Final Result Performing Organization Address [facility] de Phone Number C[facility]STIAN [address] [facility] [place] [address] * (ABNORMAL) Lipid panel (05/03/2024 10:30 AM COPYMAN) Cholesterol 198 30 - 199 mg/dL Comment: [...] on 2018. Triglycerides 128 <=149 mg/dL CRISTIAN Comment: Interpretive Data Ages < or = [...] NCEP Expert Panel. Circulation 2004;110:227 3. Timbo Mayes. ARMANI Cardiol. 2020 September 23;5(5):540-548. doi: 10.1001/jamacardio.2020.0013 Current Interpretive Data was [...] [facility] Blood 05/03/2024 10:3 0 AM COPYMAN 05/03/2024 9:13 PM COPYMAN us Gilbert Chilel MD LAB BLOOD ORDERABLE S Final Result [facility] [address] Department [place] [address] * COLONOSCOPY (02/28/2021 10:35 AM CDT) Anatomical Region Laterality Modality Other Narrative Procedure Note Enid Toribio MD - 02/28/2021 10:35 AM CDT [facility] Patient Name: Brenda Zamarripa Procedure Date: 02/28/2021 10:35 AM Date of : 1970 Admit Type: Outpatient Age: 50 Gender: Female Attending MD: Enid Toribio M.D. Room: [facility] END[facility]COPY ROOM 1 Note Status: [...] under direct vision. The Pediatric Colonoscope [id number] was introducedthrough the anus and advanced to [...] 10:35 AM Procedure Code(s): --- Professional --- 47273, Colonoscopy, flexible; with removal of tumor(s), polyp(s), or other lesion(s) by snare technique Diagnosis Code(s): --- Professional --- Z12.11, Encounter for screening for malignant neoplasm of colon K64.8, Other hemorrhoids K63.5, Polyp of colon K57.30, Diverticulosis of large intestine without perforation orabscess without bleeding CPT copyright 2019 [employer]. All rights reserved. The codes documented in this report are preliminary and upon curriculum writer reviewmay be revised to meet current compliance requirements. Recognized by the [employer] for promoting quality [...] suspicious findings in either breast. Elsa Steele ELECTRONIC WARFARE OFFICER IMG MAMMO PROCEDURES Final Re sult from Last 3 Months or Most Recently Relevant to Health Maintenance [place] [address] [facility] [place] [address] [facility] Advance Directives For more information, please contact: [phone] * Full Code (Latest Code Status on File) Date Activated Date Inactivated Comments 02/28/2021 10:26 AM 02/28/2021 5:08 PM Care Teams Farmworker Cranberry Relationship Specialty Start Date End Date Gilbert Chilel MD [address] [address] PCP - General Family Practice 04/29/24 Quoc Hendrix, PT Physical Therapist Physical Therapy 10/08/17 Bailey Piedra, ROUTE DELIVERER Physical Therapist Physical Therapy 10/13/17
--- OUTSIDE RECORDS SUMMARY | 2024-08-06 09:39 | XMS_ITS | Clinical Summary ---
Author Organization [facility] Address [address] [place] [address] Phone Care Team Providers Care Field Hauler Name Role Phone Nicole Villanueva MD Primary Care Provider Medications No known medications Social History Tobacco Use Types Packs/Day Years Used Date Smoking Tobacco: Never Assessed Comments Unknown Sex and Gender Information Value Date Recorded Sex Assigned at Not on file Legal Sex Female 8:52 PM CDT Gender Identity Not on file Sexual Orientation Not on file Plan of Treatment Health Maintenance Due Date Last Done Comments Hepatitis C Virus (HCV) Screening 1970 Hepatitis B Immunization (1 of 3 - 19+ 3-dose series) 1989 Pap Smear 1991 Cervical Cancer Screening (CCS) 2000 HPV/Cotest 2000 Colonoscopy 2015 Colorectal Cancer Screening 2015 Cologuard 2020 Immunochemical Fecal Occult Blood 2020 Mammogram 2020 Pneumococcal Immunization (50+ years) (1 of 1 - PCV) 2020 Zoster Immunization (1 of 2) 2020 Influenza Immunization (#1) 01/25/202401/25, 04/04/2017, 04/17/2016, Additional history exists SARS-COV-2 Immunization (2023- season) 2024 05/23/2021, 08/25/2020, 08/06/2020 Respiratory Syncytial Virus (RSV) Immunization (Adult) (1 - 1-dose 75+ series) 2045 DTaP/Tdap/Td Immunization Discontinued 01/19/2016 TdaP Immunization Completed 01/19/2016 Meningococcal Immunization (ACWY) Aged Out No longer eligible based on patient's age to complete this topic Pneumococcal Immunization Combined Aged Out No longer eligible based on patient's age to complete this topic Rotavirus Immunization Aged Out No lo nger eligible based on patient's age to complete this topic Insurance MEDICAID [employer] Care Teams Field Hauler Relationship Specialty Start Date End Date [facility] Nicole Ferreira MD [address] [place] [address] [address] [place] [address] PCP - General Family Medicine 08/27/18
== END 2024-08-06 09:48 | disposition home or self-care (01) ==
PROVIDERS: Emergency Provider Nurse Practitioner
DX: J06.9 Acute upper respiratory infection, unspecified (principal); R05.9 Cough, unspecified; K21.9 Gastro-esophageal reflux disease without esophagitis; F41.9 Anxiety disorder, unspecified; F32.A Depression, unspecified
CPT/HCPCS: 99213; G0463

== ENCOUNTER 2024-09-04 08:07 | Emergency (ER) | payer BC, SELFPAY ==
--- OUTSIDE RECORDS SUMMARY | 2024-09-04 08:09 | XMS_ITS | Referral Summary ---
Author Organization [facility] Address [address] [place] [address] Care Team Providers Care Search Planner Name Role Phone Quoc Hendrix PT Unavailable Unavailable Bailey Piedra DIE DESIGNER Unavailable Unavailab Gilbert Duarte MD Primary Care Provi adriana Encounters Date Type Department Care Team Description 08/04/2024 Results Follow-Up [facility] Medical [facility] Primary Care at [address] [phone] Gilbert Chilel MD 08/03/2024 9:45 AM CDT Office Visit [facility] Primary Care at [address] [phone] Gilbert Chilel MD Type 2 diabetes mellitus without complication, without long-term current use of insulin (HCC) (Primary Dx); Essential hypertension; Class 2 severe obesity with serious comorbidity and body mass index (BMI) of 36.0 to 36.9 in adult, unspecified obesity type (HCC) 08/02/2024 Results Follow-Up [facility] Medical [facility] Primary Care at [address] [phone] Gilbert Chilel MD 08/02/2024 9:21 AM CDT - 08/02/2024 11:59 PM CDT Hospital Encounter [address] [address] Hyperglycemia Discharge Disposition: Discharge to home or self care 08/02/2024 9:30 AM CDT Lab [facility] Outpatient Lab at [address] [phone] Blood glucose elevated (Primary Dx) 07/29/2024 10:45 AM LEAD ANDROID DEVELOPER Office Visit [facility] Primary Care at [address] [phone] Gilbert Chilel MD Acute gastroenteritis (Primary Dx); Nausea and vomiting, unspecified vomiting type 07/21/2024 Telephone [facility] Primary Care at [address] [phone] Gilbert Chilel MD Medical Question/Miscellaneous 07/01/2024 3:00 PM LEAD ANDROID DEVELOPER Office Visit [facility] Primary Care at [address] [phone] Gilbert Chilel MD Acute gastroenteritis (Primary Dx); Mild dehydration; Vomiting, unspecified vomiting type, unspecified whether nausea present 06/22/2024 11:30 AM LEAD ANDROID DEVELOPER Office Visit [facility] Primary Care at [address] [phone] Gilbert Chilel MD Acute intractable headache, unspecified headache type (Primary Dx); Encounter for screening mammogram for malignant neoplasm of breast from Last 3 Months Allergies No known [...] (VIIBRYD) 20 mg tablet 07/28/19 25 Active losartan (COZAAR) 25 mg tabletIndications: Essential hypertension Take 1 tablet (25 mg total) by mouth daily 90 tablet 1 08/04/19 25 025 Active ondansetron ODT (ZOFRAN-ODT) 4 mg disintegrating tabletIndications: Nausea and vomiting, unspecified vomiting type Take 1 tablet (4 mg total) by mouth every 8 (eight) hours as needed for nausea or vomiting for up to 10 days 30 tablet 07/30/19 25 025 Active Problems Problem Noted Date [...] (03/27/2020): Added automatically from request for surgery [id number] Arthritis of right acromioclavicular joint 12/10 Overview (12/10/2017): Added automatically from request for surgery [id number] Bicipital tendinitis of right shoulder 8 Overview (12/10/2017): Added automatically from request for surgery [id number] Impingement syndrome of right shoulder 8 Overview (12/10/2017): Added automatically from request for surgery [id number] Asthma 10/09/2013 Overview (08/28/2016): Asthma Depression 10/09/2013 [...] on file Legal Sex Female 12:49 AM LEAD ANDROID DEVELOPER Gender Identity Not on file Sexual Orientation [...] Description 03/14/2025 10:00 AM CDT Hospital Encounter [address] [address] Enid Toribio MD [address] [facility] [place] [address] 03/14/2025 10:00 AM CDT - 03/14/2025 10:30 AM CDT Surgery [address] [address] Enid Toribio MD [address] [place] [address] [place] [address] COLONOSCOPY Scheduled Procedures Name Priority Associated Diagnoses [...] A/B, COVID-19 ANTIGEN Routine 07/01/2024 2:45 PM LEAD ANDROID DEVELOPER Vomiting, unspecified vomiting type, unspecified whether nausea present EGFR Routine 05/03/2024 10:30 AM LEAD ANDROID DEVELOPER Essential hypertension LIPID PANEL Routine 05/03/2024 10:30 AM LEAD ANDROID DEVELOPER Essential hypertension ALBUMIN CREATININE RATIO, URINE Routine 05/03/2024 10:30 AM LEAD ANDROID DEVELOPER Hyperglycemia COLONOSCOPY 02/28/2021 10:35 AM CDT SCREENING [...] 08/03/2024 9:30 AM CDT Gilbert Chilel MD OPH PHOTOGRAPHY F inal Result * (ABNORMAL) Hemoglobin [...] and children were not included. (Diabetes Care 31:8027-5460, 2008). The eAG is not equivalent to a fasting glucose. Blood 08/02/2024 9:21 AM CDT 08/02/2024 2:38 PM CDT Gilbert Chilel MD LAB BLOOD ORDERABLE S Final Result [facility] [address] Department [place] [address] * POC Influenza A/B, COVID-19 antigen (07/01/2024 2:45 PM LEAD ANDROID DEVELOPER) Influenza A Ag, POC Negative Negative PCP [facility] Influenza B Ag, POC Negative Negative PCP [facility] COVID-19 Ag POC Presumptive Negative Presumptive Negative, Invalid PCP YULIA Nasal 07/01/2024 2:45 PM LEAD ANDROID DEVELOPER Gilbert Chilel MD POINT OF CARE TEST ORDERABLES Final Result Performing Organization Address City/[facility] Co de Phone Number PCP YULIA [address] [phone] * eGFR (05/03/2024 10:30 AM LEAD ANDROID DEVELOPER) eGFR 75 >=60 mL/min/1. 73 m2 Comment: [...] reviewed 2021. Blood 05/03/2024 10:3 0 AM LEAD ANDROID DEVELOPER 05/03/2024 9:15 PM LEAD ANDROID DEVELOPER Gilbert Chilel MD LAB BLOOD ORDERABLE S Final Result Performing Organization Address [facility] de Phone Number EDITHFREDA [address] [facility] [place] [address] * Albumin Creatinine Ratio, Urine (05/03/2024 10:30 AM LEAD ANDROID DEVELOPER) Albumin Ur 27.2 mg/L Comment: Interpretive Data No reference range established. Current interpretive data was last revised 2018. Creatinine Ur 233.5 mg/dL CRISTIAN Comment: Interpretive Data No reference range established. Current interpretive data was last revised 2018. Albumin Creatinine Ratio, Ur 12 1 - 29 mg/g [facility] Urine 05/03/2024 10:3 0 AM LEAD ANDROID DEVELOPER 05/03/2024 9:13 PM LEAD ANDROID DEVELOPER Gilbert Chilel MD LAB URINE ORDERABLE S Final Result Performing Organization Address [facility] Phone Number C[facility] [address] [facility] [place] [address] * (ABNORMAL) Lipid panel (05/03/2024 10:30 AM LEAD ANDROID DEVELOPER) Cholesterol 198 30 - 199 mg/dL Comment: [...] on 2018. HDL 39(L) >=40 mg/dL CRISTIAN Comment: Interpretive Data Ages < or = 19 years Acceptable: >45 mg/dL Borderline low: 40-45 mg/dL Low: <40 mg/dL Ages > or = 20 years Desirable: >or= 60 mg/dL Low: <40 mg/dL Literature References: 1. Expert Panel on Integrated Guidelines for Cardiovascular Health and Risk Reduction in Children and Adolescents. Pediatrics 2011;128:S213 2. NCEP Expert Panel. Circulation 2003;110:227 Current Interpretive Data was last revised on 2018. LDL, calculated 136(H) <=129 mg/dL CRISTIAN Comment: Interpretive Data Ages < [...] 3. Timbo Corcoran et al. ARMANI Cardiol. 2020 September 23;5(5):540-548. doi: 10.1001/jamacardio.2020.0013 [...] [facility]IAN WORLEY Blood 05/03/2024 10:3 0 AM LEAD ANDROID DEVELOPER 05/03/2024 9:13 PM LEAD ANDROID DEVELOPER us Gilbert Chilel MD LAB BLOOD ORDERABLE S Final Result [facility] [address] Department [place] [address] * COLONOSCOPY (02/28/2021 10:35 AM CDT) Anatomical Region Laterality Modality Other Narrative Procedure Note Enid Toribio MD - 02/28/2021 10:35 AM CDT [facility] Patient Name: Brenda Zamarripa Procedure Date: 02/28/2021 10:35 AM Date of : 1970 Admit Type: Outpatient Age: 50 Gender: Female Attending MD: Enid Toribio M.D. Room: [facility] ENDOSCOPY ROOM 1 Note Status: [...] under direct vision. The Pediatric Colonoscope PCF-H190L [id number] was introducedthrough the anus and advanced to [...] 10:35 AM Procedure Code(s): --- Professional --- 92704, Colonoscopy, flexible; with removal of tumor(s), polyp(s), or other lesion(s) by snare technique Diagnosis Code(s): --- Professional --- Z12.11, Encounter for screening for malignant neoplasm of colon K64.8, Other hemorrhoids K63.5, Polyp of colon K57.30, Diverticulosis of large intestine without perforation orabscess without bleeding CPT copyright 2019 [employer]. All rights reserved. The codes documented in this report are preliminary and upon flying shear operator reviewmay be revised to meet current compliance requirements. Recognized by the [employer] for promoting quality in endoscopy Enid Toribio MD ENDOSCOPY PROCEDURES Final Result [...] suspicious findings in either breast. Elsa Steele RESEARCH LAB ASSISTANT IMG MAMMO PROCEDURES Final Re sult from Last 3 Months or Most Recently Relevant to Health Maintenance Insurance IDPA [facility] IDPA [facility] [place] For more information, please contact: [phone] * Full Code (Latest Code Status on File) Date Activated Date Inactivated Comments 02/28/2021 10:26 AM 02/28/2021 5:08 PM Care Teams Search Planner Relationship Specialty Start Date End Date Gilbert Chilel MD [address] [facility] [address] [place] [address] PCP - General Family Practice 04/29/24 Quoc Hendrix, PT Physical Therapist Physical Therapy 10/08/17 Bailey Piedra, DIE DESIGNER Physical Therapist Physical Therapy 10/13/17
--- OUTSIDE RECORDS SUMMARY | 2024-09-04 08:09 | XMS_ITS | Clinical Summary ---
Author Organization [facility] Address [address] [place] [address] Care Team Providers Care Piggyback Clerk Name Role Phone Quoc Hendrix PT Unavailable Unavailable Bailey Piedra FORECLOSURE PARALEGAL Unavailable Unavailab Gilbert Duarte MD Primary Care [...] (03/27/2020): Added automatically from request for surgery [id number] Arthritis of right acromioclavicular joint 12/10 Overview (12/10/2017): Added automatically from request for surgery [id number] Bicipital tendinitis of right shoulder 8 Overview (12/10/2017): Added automatically from request for surgery [id number] Impingement syndrome of right shoulder 8 Overview (12/10/2017): Added automatically from request for surgery [id number] Asthma 10/09/2013 Overview (08/28/2016): Asthma Depression 10/09/2013 Overview (08/29/2016): Depression Bipolar affective disorder 10/09/2013 Overview (08/29/2016): Bipolar disorder Resolved Problems Problem Noted Date Diagnosed Date Resolved Date Acute intractable headache 06/22/2024 0 07/29/2024 Class 2 obesity without seri ous comorbidity with body mass index (BMI) of 37.0 to 37.9 in adult 04/29/2024 08/03/2024 Encounters Date Type Department Care Team Description 08/04/2024 Results Follow-Up [facility] Primary Care at [address] [phone] Gilbert Chilel MD 08/03/2024 9:45 AM CDT Office Visit [facility] Primary Care at [address] [phone] Gilbert Chilel MD Type 2 diabetes mellitus without complication, without long-term current use of insulin (HCC) (Primary Dx); Essential hypertension; Class 2 severe obesity with serious comorbidity and body mass index (BMI) of 36.0 to 36.9 in adult, unspecified obesity type (HCC) 08/02/2024 9:30 AM CDT Lab [facility] Outpatient Lab at [address] [phone] Blood glucose elevated (Primary Dx) 08/02/2024 9:21 AM CDT - 08/02/2024 11:59 [place] [address] Hyperglycemia Discharge Disposition: Discharge to home or self care 08/02/2024 Results Follow-Up [facility] Primary Care at [address] [phone] Gilbert Chilel MD 07/29/2024 10:45 AM COREMAKER APPRENTICE Office Visit [facility] Primary Care at [address] [phone] Gilbert Chilel MD Acute gastroenteritis (Primary Dx); Nausea and vomiting, unspecified vomiting type 07/21/2024 Telephone [facility] Primary Care at [address] [phone] Gilbert Chilel MD Medical Question/Miscellaneous 07/01/2024 3:00 PM COREMAKER APPRENTICE Office Visit [facility] Primary Care at [address] [phone] Gilbert Chilel MD Acute gastroenteritis (Primary Dx); Mild dehydration; Vomiting, unspecified vomiting type, unspecified whether nausea present 06/22/2024 11:30 AM COREMAKER APPRENTICE Office Visit [facility] Primary Care at [address] [phone] Gilbert Chilel MD Acute intractable headache, unspecified headache type (Primary Dx); Encounter for screening mammogram for malignant neoplasm of breast from Last 3 Months Immunizations Immunization Administration [...] Medical History Date Comments Hx Other Medical 2007 stress Hx Other Medical 2007 low iron Hx Other Medical cholecystitis Hx [...] on file Legal Sex Female 12:49 AM COREMAKER APPRENTICE Gender Identity Not on file Sexual Orientation [...] Description 03/14/2025 10:00 AM CDT Hospital Encounter [address] [address] Enid Toribio MD [address] [facility] [address] [place] [address] 03/14/2025 10:00 AM CDT - 03/14/2025 10:30 AM CDT Surgery [address] [address] Enid Toribio MD 4 [facility] [address] [place] [address] COLONOSCOPY Scheduled Procedures Name Priority Associated Diagnoses [...] 07/10/2018, 03/12/2017, Additional history exists Covid-19 Vaccine (2023- 5 season) 2024 05/23/2021, 05/22/2021, 08/25/2020, Additional [...] A/B, COVID-19 ANTIGEN Routine 07/01/2024 2:45 PM COREMAKER APPRENTICE Vomiting, unspecified vomiting type, unspecified whether nausea present EGFR Routine 05/03/2024 10:30 AM COREMAKER APPRENTICE Essential hypertension LIPID PANEL Routine 05/03/2024 10:30 AM COREMAKER APPRENTICE Essential hypertension ALBUMIN CREATININE RATIO, URINE Routine 05/03/2024 10:30 AM COREMAKER APPRENTICE Hyperglycemia COLONOSCOPY 02/28/2021 10:35 AM CDT SCREENING MAMMOGRAM BILATERAL W QIUNTON Schedule Routine, Read Routine (OP Routine) 08/28/2020 [...] and children were not included. (Diabetes Care 31:2110-9345, 2008). The eAG is not equivalent to a fasting glucose. Blood 08/02/2024 9:21 AM CDT 08/02/2024 2:38 PM CDT Gilbert Chilel MD LAB BLOOD ORDERABLE S Final Result [facility] [address] Department [place] [address] * POC Influenza A/B, COVID-19 antigen (07/01/2024 2:45 PM COREMAKER APPRENTICE) Influenza A Ag, POC Negative Negative PCP [facility] Influenza B Ag, POC Negative Negative PCP [facility] COVID-19 Ag POC Presumptive Negative Presumptive Negative, Invalid PCP [facility] Nasal 07/01/2024 2:45 PM COREMAKER APPRENTICE Gilbert Chilel MD POINT OF CARE TEST ORDERABLES Final Result [facility] [address] [phone] * eGFR (05/03/2024 10:30 AM COREMAKER APPRENTICE) eGFR 75 >=60 mL/min/1. 73 m2 Comment: [...] reviewed 2021. Blood 05/03/2024 10:3 0 AM COREMAKER APPRENTICE 05/03/2024 9:15 PM COREMAKER APPRENTICE Gilbert Chilel MD LAB BLOOD ORDERABLE S Final Result [facility] [address] Department [place] [address] * Albumin Creatinine Ratio, Urine (05/03/2024 10:30 AM COREMAKER APPRENTICE) Albumin Ur 27.2 mg/L Comment: Interpretive Data No reference range established. Current interpretive data was last revised 2018. Creatinine Ur 233.5 mg/dL C[facility]STIAN WORLEY Comment: Interpretive Data No reference range established. Current interpretive data was last revised 2018. Albumin Creatinine Ratio, Ur 12 1 - 29 mg/g C[facility]IAN WORLEY Urine 05/03/2024 10:3 0 AM COREMAKER APPRENTICE 05/03/2024 9:13 PM COREMAKER APPRENTICE us Gilbert Chilel MD LAB URINE ORDERABLE S Final Result [facility] [address] Department of Laboratories [place] [id number] * (ABNORMAL) Lipid panel (05/03/2024 10:30 AM COREMAKER APPRENTICE) Cholesterol 198 30 - 199 mg/dL Comment: [...] CRISTIAN WORLEY Blood 05/03/2024 10:3 0 AM COREMAKER APPRENTICE 05/03/2024 9:13 PM COREMAKER APPRENTICE us Gilbert Chilel MD LAB BLOOD ORDERABLE S Final Result [facility] [place] Department [place] [address] * COLONOSCOPY (02/28/2021 10:35 AM CDT) Anatomical Region Laterality Modality Other Narrative Procedure Note Enid Toribio MD - 02/28/2021 10:35 AM CDT [facility] Patient Name: Brenda Zamarripa Procedure Date: 02/28/2021 10:35 AM Date of : 1970 Admit Type: Outpatient Age: 50 Gender: Female Attending MD: Enid Toribio M.D. Room: [facility] ENDOSCOPY ROOM 1 Note Status: Finalized Patient [...] under direct vision. The Pediatric Colonoscope PCF-H190L [id number] was introducedthrough the anus and advanced to [...] 10:35 AM Procedure Code(s): --- Professional --- 73024, Colonoscopy, flexible; with removal of tumor(s), polyp(s), or other lesion(s) by snare technique Diagnosis Code(s): --- Professional --- Z12.11, Encounter for screening for malignant neoplasm of colon K64.8, Other hemorrhoids K63.5, Polyp of colon K57.30, Diverticulosis of large intestine without perforation orabscess without bleeding CPT copyright 2019 [employer]. All rights reserved. The codes documented in this report are preliminary and upon auto research engineer reviewmay be revised to meet current compliance [...] suspicious findings in either breast. Elsa Steele [employer] SALESPERSON IMG MAMMO PROCEDURES Final Re sult from Last 3 Months or Most Recently Relevant to Health Maintenance Insurance [place] [address] [facility] [address] [facility] [place] Advance Directives For more information, please contact: [phone] * Full Code (Latest Code Status on File) Date Activated Date Inactivated Comments 02/28/2021 10:26 AM 02/28/2021 5:08 PM Care Teams Piggyback Clerk Relationship Specialty Start Date End Date Gilbert Chilel MD [address] [place] [address] PCP - General Family Practice 04/29/24 Quoc Hendrix, PT Physical Therapist Physical Therapy 10/08/17 Bailey Piedra, FORECLOSURE PARALEGAL Physical Therapist Physical Therapy 10/13/17
--- OUTSIDE RECORDS SUMMARY | 2024-09-04 08:09 | XMS_ITS | Clinical Summary ---
Author Organization [facility] Address [address] [facility] [place] [address] Phone Care Team Providers Care Casting Plug Assembler Name Role Phone Nicole Villanueva MD Primary [...] of 3 - 19+ 3-dose series) 1989 Colonoscopy 2015 Colorectal Cancer Screening 2015 Cologuard 2020 Immunochemical Fecal Occult Blood 2020 Pneumococcal Immunization (50+ years) (1 of 1 - PCV) 2020 Zoster Immunization (1 of 2) 2020 Influenza Immunization (#1) 2024 09/10/2017, 04/04/2017, 04/17/2016, Additional history exists SARS-COV-2 Immunization ( season) 2024 05/23/2021, 08/25/2020, 08/06/2020 Respiratory Syncytial [...] Insurance MEDICAID [employer] Care Teams Casting Plug Assembler Relationship Specialty Start Date End Date iang Nicole Ferreira MD [address] [place] [address] [address] [place] [address] PCP - General Family Medicine 08/27/18
[2024-09-04 08:10] VITALS: BP 115/86; PULSE 98; RESP 16; TEMP 36.9; O2SAT 96
--- OUTSIDE RECORDS SUMMARY | 2024-09-04 08:10 | XMS_ITS | Encounter Summary ---
Author Organization [facility] Healthcare Address [address] [place] [address] Care Team Providers Care Production Consultant Name Role Phone Quoc Hendrix PT Unavailable Unavailable Bailey Piedra BEER COOLER Unavailable Unavailab Gilbert Duarte MD Primary Care Provi adriana Encounter Details Date Type Department Care Team (Late st Contact Info) Description 08/02/2024 Results Follow-Up [facility] Primary Care at [address] [phone] Gilbert Chilel MD [address] [place] [address] Social History Tobacco Use Types Packs/Day Years [...] on file Legal Sex Female 12:49 AM BINGO CASHIER Gender Identity Not on file Sexual Orientation Not on file documented as of this encounter Plan of Treatment Upcoming Encounters Date Type Department Care Team (Late st Contact Info) Description 03/14/2025 10:00 AM CDT Hospital Encounter [facility] [address] [place] [address] Enid Toribio MD [address] [facility] [address] [place] [address] 03/14/2025 10:00 AM CDT - 03/14/2025 10:30 AM CDT Surgery [address] [address] Enid Toribio MD [address] [facility] [address] [place] [address] COLONOSCOPY Scheduled Procedures Name Priority Associated Diagnoses Date/Ti me COLONOSCOPY Personal history of colonic polyps Encounter for screening colonoscopy 03/14/2025 10:00 AM CDT documented as of this encounter Visit Diagnoses Not on filedocumented in this encounter Care Teams Production Consultant Relationship Specialty Start Date End Date Gilbert Chilel MD [address] [facility] [address] [place] [address] PCP - General Family Practice 04/29/24 Quoc Hendrix, PT Physical Therapist Physical Therapy 10/08/17 Bailey Piedra PTA Physical Therapist Physical Therapy 10/13/17 documented as of this encounter
--- OUTSIDE RECORDS SUMMARY | 2024-09-04 08:10 | XMS_ITS | Encounter Summary ---
Author Organization [facility] Healthcare Address [address] [place] [address] Care Team Providers Care Screen Machine Operator Name Role Phone Simeon Quoc PT Unavailable Unavailable Bailey Piedra HARP ACTION ASSEMBLER Unavailable Unavailab Nicole Cornell MD Primary Care Provider [phone] Mar Patel MD Primary Care Provider [phone]- [phone] Nicole Martinez MD Primary Care Provider [phone] Mar Patel MD Primary Care Provider [phone]- [phone] Gilbert Chilel MD Primary Care Provi adriana Reason for Visit * Reason Onset Date Comments Scheduling Appointments 10/19/2020 Confirmi ng mammogram appt Encounter Details Date Type Department Care Team (Late st Contact Info) Description 10/19/2020 Telephone [facility] [address] [place] [id number] Jackie Nichols RT Scheduling Appointments (Confirming mammogram appt) Social History Tobacco Use Types Packs/Day Years Used Date Smoking Tobacco: Never Smokeless Tobacco: Never Alcohol Use Standard Drinks/Week Comments No 0 (1 standard drink = 0.6 oz pur e alcohol) Comments No Sex and Gender Information Value Date Recorded Sex Assigned at Not on file Legal Sex Female 12:49 AM TECHNICAL HEALTHCARE CONSULTANT Gender Identity Not on file Sexual Orientation Not on file documented as of this encounter Plan of Treatment Upcoming Encounters Date Type Department Care Team (Late st Contact Info) Description 03/14/2025 10:00 AM CDT Hospital Encounter [facility] Center [address] [place] [id number] Enid Toribio MD [address] [place] [address] 03/14/2025 10:00 AM CDT - 03/14/2025 10:30 AM CDT Surgery [facility] Digestive [facility] Center [address] [place] [address] Enid Toribio MD [address] [place] [address] COLONOSCOPY Scheduled Procedures Name Priority Associated Diagnoses Date/Ti me COLONOSCOPY Personal history of colonic polyps Encounter for screening colonoscopy 03/14/2025 10:00 AM CDT documented as of this encounter Visit Diagnoses Not on filedocumented in this encounter Additional Health Concerns Infection Onset Date Last Indicated Resolved Time COVID: Suspected 07/01/2024 07/01/2024 07/02/2024 3:07 AM TECHNICAL HEALTHCARE CONSULTANT documented as of this encounter Care Teams Screen Machine Operator Relationship Specialty Start Date End Date Nicole Martinez MD [address] [place] [address] [address] DELROY Gaitan [facility] [address] [place] [address] PCP - General 06/05/20 10/19/20 Mar Patel MD [address] [place] [address] [place] [address] PCP - General 10/20/20 02/27/21 Nicole Martinez MD [address] [place] [address] [address] DELROY Gaitan [facility] [address] [place] [address] PCP - General 02/28/21 12/16/21 Mar Patel MD [address] [place] [id number] PCP - General Internal Medicine 12/17/21 04/28/24 Gilbert Chilel MD [address] [facility] [address] [place] [address] PCP - General Family Practice 04/29/24 Quoc Hendrix, PT Physical Therapist Physical Therapy 10/08/17 Bailey Piedra, HARP ACTION ASSEMBLER Physical Therapist Physical Therapy 10/13/17 documented as of this encounter
--- OUTSIDE RECORDS SUMMARY | 2024-09-04 08:10 | XMS_ITS | Encounter Summary ---
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 Gender Identity Not on file Sexual Orientation Not on file documented as of this encounter Miscellaneous Notes * Result Encounter Note - Stacy Rizvi MA - 08/04/2024 7:48 AM CDT Message sent to patient via [employer] over normal diabetic eye exam documented in this encounter Plan of Treatment Upcoming Encounters Date Type Department Care Team (Late st Contact Info) Description 03/14/2025 10:00 AM CDT Hospital Encounter [address] [address] Enid Toriboi MD [address] [facility] [address] [place] [address] 03/14/2025 10:00 AM CDT - 03/14/2025 10:30 AM CDT Surgery [address] [address] Enid Toribio MD [address] [facility] [address] [place] [address] COLONOSCOPY Scheduled Procedures Name Priority Associated Diagnoses Date/Ti me COLONOSCOPY Personal history of colonic polyps Encounter for screening colonoscopy 03/14/2025 10:00 AM CDT documented as of this encounter Visit Diagnoses Not on filedocumented in this encounter Care Teams Advanced Seal Delivery System Relationship Specialty Start Date End Date Gilbert Chilel MD [address] [facility] [address] [place] [address] PCP - General Family Practice 04/29/24 Quoc Hednrix, PT Physical Therapist Physical Therapy 10/08/17 Bailey Piedra PTA Physical Therapist Physical Therapy 10/13/17 documented as of this encounter
--- NOTE | 2024-09-04 08:33 | ED.GENADULT ---
HPI - General Adult General Chief complaint: Upper Respiratory Infection Stated complaint: Sore Throat Source: patient Mode of arrival: ambulatory Limitations: no limitations History of Present Illness HPI narrative: Pt presents for evaluation of sore throat. Symptom onset last night. She reports low grade fever and chills. She had diarrhea last night but that has improved. No cough, SOB, sinus congestion or otalgia. 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 She has tried Chloraseptic for her symptoms. Related Data Home Medications ?Medication ?Instructions ?Recorded ?Confirmed ?Last Taken ?Type amlodipine 5 mg tablet 5 mg PO DAILY 09/08/23 04/19/24 Unknown History hydroxyzine HCl 25 mg tablet 25 mg PO DAILY PRN Anxiety 09/08/23 04/19/24 Unknown History lamotrigine 25 mg tablet 50 mg PO QHS 09/08/23 04/19/24 Unknown History omeprazole 20 mg capsule,delayed 20 mg PO BID 09/08/23 04/19/24 Unknown History release metformin 500 mg tablet 500 mg PO BID 03/31/24 04/19/24 Unknown History naltrexone 50 mg tablet 50 mg PO DAILY 03/31/24 04/19/24 Unknown History bupropion HCl 200 mg tablet,12 hr 200 mg PO BID 04/19/24 04/19/24 Unknown History sustained-release escitalopram oxalate 10 mg tablet 10 mg PO DAILY 04/19/24 04/19/24 Unknown History losartan 25 mg tablet mg 09/04/24 Unknown History vilazodone 20 mg tablet mg 09/04/24 Unknown History Allergies Allergy/AdvReac Type Severity Reaction Status Date / Time No Known Allergies Allergy Verified 09/04/24 08:24 Review of Systems Review of Systems: CONSTITUTIONAL: Reports low grade fever and chills. EYES: Denies visual changes, redness, or discharge. ENT: Reports sore throat. Denies rhinorrhea, congestion, or otalgia. CARDIOVASCULAR: Denies chest pain, palpitations, or edema. RESPIRATORY: Denies cough or dyspnea. GASTROINTESTINAL: Reports diarrhea last night. Denies abdominal pain, nausea, vomiting GENITOURINARY: Denies dysuria or hematuria. SKIN: Denies rash or itching. MUSCULOSKELETAL: Denies back pain, joint pain, or myalgia. NEUROLOGIC: Denies headache, numbness, dizziness, or weakness. PSYCHIATRIC: Denies anxiety or depression. [facility] Past Medical History Medical History Carpal tunnel syndrome GERD (gastroesophageal reflux disease) Anxiety and depression Surgical History Surgical History Hx of tubal ligation Hx of cholecystectomy Family History Family History Other Diabetes mellitus Social History Social History Smoking status: Never smoker Alcohol intake: never Substance use: never Gender identity (if verbalized by the patient): Female Spiritual care concerns: No Exam Narrative: GENERAL: Well-appearing, well-nourished, and in no acute distress. HEAD: Normocephalic, atraumatic. EYES: PERRLA and EOMI. ENT: Nares clear, no rhinorrhea or epistaxis. Mucous membranes moist. Oropharynx without tonsillar hypertrophy exudate or other lesions. There is mild posterior pharyngeal erythema. Bilateral TMs pearly nelson nonbulging NECK: Supple. No adenopathy or masses. No carotid bruits or JVD CHEST: Clear to auscultation. No respiratory distress. No wheezes rales or rhonchi HEART: Regular rate and rhythm. No murmur heard. Normal peripheral pulses. ABDOMEN: Soft, nontender, nondistended, normal active bowel sounds. EXTREMITIES: Normal range of motion. No edema. SKIN: Warm, dry, no rash. NEURO: No focal deficits. Alert and oriented x3. PSYCH: Normal mood and affect. Course Course Emergency Course: This is a 54-year-old female who presented for evaluation of sore throat. Rapid strep negative. Symptoms likely viral in nature. However she would like to be treated with antibiotics in the event that her test was a false negative. Follow-up with primary provider. [id number] agents for symptom management. Go to the ER for worsening symptoms. Patient in agreement with plan of care. Level of Care: Express Care Visit Vital Signs Vital signs: Vital Signs Temperature 36.9 C 09/04/24 08:10 Pulse Rate 98 09/04/24 08:10 Respiratory Rate 16 09/04/24 08:10 Blood Pressure 115/86 09/04/24 08:10 Pulse Oximetry 96 09/04/24 08:10 Oxygen Delivery Room Air 09/04/24 08:10 Temperature 36.9 C 09/04/24 08:10 Pulse Rate 98 09/04/24 08:10 Respiratory Rate 16 09/04/24 08:10 Blood Pressure 115/86 09/04/24 08:10 Pulse Oximetry 96 09/04/24 08:10 Oxygen Delivery Room Air 09/04/24 08:10 Medical Decision Making Vital Signs Vital Signs: Vital Signs Temperature 36.9 C 09/04/24 08:10 Pulse Rate 98 09/04/24 08:10 Respiratory Rate 16 09/04/24 08:10 Blood Pressure 115/86 09/04/24 08:10 Pulse Oximetry 96 09/04/24 08:10 Oxygen Delivery Room Air 09/04/24 08:10 Temperature 36.9 C 09/04/24 08:10 Pulse Rate 98 09/04/24 08:10 Respiratory Rate 16 09/04/24 08:10 Blood Pressure 115/86 09/04/24 08:10 Pulse Oximetry 96 09/04/24 08:10 Oxygen Delivery Room Air 09/04/24 08:10 Lab Data Labs: Lab Results 09/04/24 Range/Units 08:35 POC Grp A Strep Screen Pending Discharge Plan Discharge Clinical Impression: Pharyngitis Patient Disposition: Home Condition: Stable Instructions: Antibiotic Form, Pharyngitis (ED) Patient Language: Turkmen Prescriptions: New amoxicillin 500 mg tablet 500 mg PO Q12H Qty: 20 0RF No Action metformin 500 mg tablet 500 mg PO BID naltrexone 50 mg tablet 50 mg PO DAILY escitalopram oxalate 10 mg tablet 10 mg PO DAILY bupropion HCl 200 mg tablet sustained-release 12 hr 200 mg PO BID dextromethorphan-guaifenesin [Mucinex DM] 60-1,200 mg tablet extended release 12 hr 1 tablet PO Q12H Qty: 12 0RF losartan 25 mg tablet vilazodone 20 mg tablet lamotrigine 25 mg tablet 50 mg PO QHS omeprazole 20 mg capsule,delayed release(DR/EC) 20 mg PO BID hydroxyzine HCl 25 mg tablet 25 mg PO DAILY PRN (Reason: Anxiety) amlodipine 5 mg tablet 5 mg PO DAILY Follow-up/Referrals: Fadi Cortez MD [Physician] - Time of Disposition: 08:31
[2024-09-04 08:37] LABS: EDSTREPNEGPOS1 Negative (Negative)
== END 2024-09-04 08:35 | disposition home or self-care (01) ==
PROVIDERS: Emergency Provider Nurse Practitioner
DX: J02.9 Acute pharyngitis, unspecified (principal); Z79.899 Other long term (current) drug therapy
CPT/HCPCS: 87081; 87880; 99213; G0463